=== PATIENT | male | born 1980 | race Caucasian/White ===

== ENCOUNTER 2025-03-08 05:36 | Inpatient (IN) | payer MEDICAID, SELFPAY ==
[2025-03-08] VITALS (62 sets, daily range): BP systolic 143–240; BP diastolic 82–138; PULSE 75–117; RESP 11–30; TEMP 36.2–36.6; O2SAT 88–100
--- NOTE | 2025-03-08 05:30 | RT.EKG_ITS ---
APPROVED REPORT Exam: Resting ECG Reason for Exam: SOB Patient Location: E HR:110 bpm ECG Measurements Heart Rate 110 AXIS MI 170 P 95 QRSd 98 QRS 35 QT 349 T 121 QTc 471 Conclusion Sinus tachycardia...rate> 99 Nonspecific T abnormalities, lateral leads...T <-0.10mV, I aVL V5 V6
[2025-03-08] MEDS: Albuterol/Ipratropium 3 ML UPD VIAL ×2 (05:59→07:04)
--- NOTE | 2025-03-08 06:16 | ED.GENADUL_ITS ---
Discharge Plan Discharge Details Chief Complaint: SOB/SuddenOnset Primary Care Provider: Unknown,Unknown ED Provider: Reynaldo Gomez Home Meds and New Rx's Prescriptions: No Action No Known Home Meds HPI General Date/Time Provider Initiated Documentation: 03/08/25 06:03 . HPI Narrative: This is a 44-year-old male who has no past medical history however he states that he has not gone to a doctor since I was 15 years old who presents today for shortness of breath. Patient states that he was asleep when he woke up feeling like he was choking. [place] extremely short of breath and came to the ER for further assessment. He has been smoking for decades. He states that over the last few nights he has had a few episodes like this, but this is the worst. He denies vomiting or diarrhea. He admits to mild right sided chest wall achiness. He denies fever or chills. No productivity with cough. No other complaints at this time. He states that he feels like his chest is extremely tight whenever he tries to take a breath, which she states feels very similar to when he used to have asthma as a child, but has not had any asthma problem or diagnosis for years otherwise. Related Data Home Medications ?Medication ?Instructions ?Recorded ?Confirmed Unknown [No Known Home Meds] 03/08/25 03/08/25 Allergies Allergy/AdvReac Type Severity Reaction Status Date / Time Unable to Assess Allergy Verified 03/08/25 05:53 General Stated Complaint: SOB/SuddenOnset NAE: 3 Exam Narrative Exam Narrative: 1.Const: Well-nourished, Well-developed, appearing stated age 2.Eyes: PERRL, no conjunctival injection, and symmetrical lids. 3.ENT: Atraumatic external nose and ears. Moist MM. Neck: Symmetric, trachea midline, No thyromegaly. 4.CVS: +S1/S2, Peripheral pulses 2+ and equal in all extremities. Brisk capillary refill in all extremities. 5.RESP: Diffuse wheezes throughout, reduced breath sounds throughout. No rhonchi or rales. 6.GI: Soft, Nontender/Nondistended, No hepatosplenomegaly. No guarding or rebound. 7.MSK: Normocephalic/Atraumatic, Extremities w/o deformity or ttp No cyanosis or clubbing, Normal movement of all extremities. Trace pitting edema. 8.Skin: Warm, Dry. No rashes or lesions. 9.Neuro: erp consultant II-XII grossly intact. Sensation grossly intact, no focal neurologic deficits. 10.Psych: (AAO) x3. Appropriate mood and affect Course Vital Signs Vital signs: Vital Signs Temperature 36.4 C L 03/08/25 05:41 Pulse 117 H 03/08/25 05:41 Respiratory Rate 28 H 03/08/25 05:41 Blood Pressure 240/124 H 03/08/25 05:41 Pulse Oximetry 94 03/08/25 05:41 Temperature 36.4 C L 03/08/25 05:41 Temperature Source Tympanic 03/08/25 05:41 Pulse 117 H 03/08/25 05:41 Respiratory Rate 28 H 03/08/25 05:45 Respiratory Effort Short of Breath, Accessory Muscle Use, Incrsd Work of Breathing 03/08/25 05:45 Respiratory Depth Shallow 03/08/25 05:45 Respiratory Pattern Tachypnea 03/08/25 05:45 Blood Pressure 240/124 H 03/08/25 05:41 Blood Pressure Position Sitting 03/08/25 05:41 Pulse Oximetry 94 03/08/25 05:41 Oxygen Delivery Method Room Air 03/08/25 05:41 Oxygen Flow Rate 0 03/08/25 05:41 Pain Level 0 03/08/25 05:41 Medical Decision Making This is a 44-year-old male who has no past medical history however he states that he has not gone to a doctor since I was 15 years old who presents today for shortness of breath. Patient states that he was asleep when he woke up fe eling like he was choking. [place] extremely short of breath and came to the ER for further assessment. He has been smoking for decades. He states that over the last few nights he has had a few episodes like this, but this is the worst. He denies vomiting or diarrhea. He admits to mild right sided chest wall achiness. He denies fever or chills. No productivity with cough. No other complaints at this time. He states that he feels like his chest is extremely tight whenever he tries to take a breath, which she states feels very similar to when he used to have asthma as a child, but has not had any asthma problem or diagnosis for years otherwise. Exam demonstrates diffuse wheezes, no rhonchi or rales. Oxygenation is 94%. Concern for asthma exacerbation, less likely pneumonia. Symptoms inconsistent with PE. Will give breathing treatment, steroids, gently rehydrate get a chest x-ray, monitor closely and reassess. 7:22 AM After additional breathing treatments patient is feeling a bit better. Achiness in his chest is notably improved. However the achiness seems to only be present when he coughs now. Laboratory workup is relatively benign aside for evidence of an elevated troponin at 303. Patient does admit to a family history of cardiac disease for his mother. He does not know the rest of his family. Concern for demand ischemia being the cause of his symptoms in conjunction with COPD exacerbation. However we will need to trend troponins and plan for admission. Once second troponin returns we will reach out to [facility] for discussion of potential need for transfer. Patient will be signed out to my colleague Dr. Sy for follow-up on imaging and labs. Quality:[facility] Health Related Social Needs: No Data to Display [facility] Social History Smoking/Tobacco Use Status: Current every day Tobacco Type: cigarettes Smoking risk assessment performed?: Yes Alcohol Intake: never Drug use: Never Substance use type: does not use Housing: apartment Do you feel safe at home: Yes Do you feel safe in your relationship?: Yes
--- NOTE | 2025-03-08 06:18 | DI.RAD_ITS ---
Exam(s) XR PORTABLE CHEST AP EXAM: XR PORTABLE CHEST AP CLINICAL HISTORY: sob TECHNIQUE: 2D digital imaging was performed of the chest. Two images were obtained. AP views were obtained. COMPARISON: No exams were available for comparison FINDINGS: MEDIASTINUM: Normal. HEART: Cardiomegaly. PULMONARY VASCULATURE: There is mild prominence of the pulmonary vasculature and increased interstiti al markings in the lungs. LUNGS: No focal consolidating infiltrates are seen. PLEURAL SPACE: No pleural effusion or pneumothorax. BONE:Within normal limits for the patient's age. OTHER FINDINGS:Normal. IMPRESSION: 1. Cardiomegaly. 2. Pulmonary venous congestion and probable mild interstitial edema. The findings are suggestive of fluid overload/heart failure. Please correlate with the patient's clinical history. A dedicated PA and lateral view of the chest should be considered for further characterization. 3. Focal consolidating infiltrates are seen. 4. The preliminary [facility] report was reviewed. DATA REPOSITORY: RADIATION DOSE DELIVERED:
[2025-03-08] MEDS: methylPREDNISolone SUCC 40 MG VIAL (06:20)
[2025-03-08 06:45] LABS: Abs Immature Grans 0.05 10^3/uL (0.0-0.06); Absolute Basophil Count 0.08 10^3/uL (0.0-0.2); Absolute Eosinophil Count 0.18 10^3/uL (0.0-0.7); Absolute Lymphocyte Count 1.61 10^3/uL (1.2-3.4); Absolute Monocyte Count 0.79 10^3/uL (0.1-0.8); Absolute Neutrophil Count 6.38 10^3/uL (1.2-6.7); Basophils % 0.9 %; HCT 46.5 % (40.0-50.0); HGB 15.8 g/dL (13.5-17.5); Immature Grans % 0.6 %; Lymphocytes % 17.7 %; MCV 94 fL (80-95); MPV 9.3 fL (8.0-11.0); Monocytes % 8.7 %; Neutrophils % 70.1 %; Platelet Count 247 10^3/uL (130-400); RBC 4.94 10^6/uL (4.36-5.78); RDW 13.3 % (11.8-14.1); RDW-SD 45.9 fL; WBC 9.09 10^3/uL (4.4-10.8)
[2025-03-08 06:49] LABS: ALT 34 U/L (16-63); AST 29 U/L (15-37); Albumin 3.7 g/dL (3.4-5.0); Alkaline Phosphatase 134 U/L (46-116); Anion Gap 7.1 mmol/L (3-11); BUN 18 mg/dL (7-18); Bilirubin, Total 0.6 mg/dL (0.2-1.0); CO2 28.9 mmol/L (21.0-32.0); CREATININE 1.5 mg/dL (0.70-1.30); Calcium 9.3 mg/dL (8.5-10.1); Chloride 104 mmol/L (98-107); Estimated GFR 57.79 (mL/min/1.73m2); Glucose 98 mg/dL (74-106); Potassium 3.8 mmol/L (3.5-5.1); Sodium 140 mmol/L (136-145); Total Protein 7.7 g/dL (6.4-8.2)
[2025-03-08 06:52] LABS: Troponin I 303 ng/L (<or=76)
[2025-03-08 06:56] LABS: PTT Activated 25.4 sec (20.6-30.2); Prothrombin Time 10.4 sec (9.1-11.1)
[2025-03-08] MEDS: Aspirin 81 MG CHEW 324 MG CH (07:02)
[2025-03-08] MEDS: nitroGLYcerin 0.4 MG TAB (07:18)
[2025-03-08 07:23] LABS: Troponin I 297 ng/L (<or=76)
--- NOTE | 2025-03-08 07:25 | DI.[facility]_ITS ---
PROCEDURE INFORMATION: Exam: XR Chest Exam date and time: 03/08/2025 6:16 AM Age: 44 years old Clinical indication: Shortness of breath; SOB TECHNIQUE: Imaging protocol: Radiologic exam of the chest. Views: 1 view. COMPARISON: No relevant prior studies available. FINDINGS: Lungs: Pulmonary vascular congestion. Pleural spaces: No large pleural effusion seen. Heart/Mediastinum: Enlarged cardiac silhouette. Bones/joints: No acute abnormality. IMPRESSION: Enlarged cardiac silhouette with pulmonary vascular congestion. Correlate clinically for heart failure. Dictated and Authenticated by: Christi Lopez MD. Orderin Jason Jacobs MD
[2025-03-08] MEDS: Furosemide 20 MG/2 ML VIAL IVP (07:30)
[2025-03-08 07:49] LABS: NT-proBNP 1762 pg/mL (<300)
--- NOTE | 2025-03-08 08:13 | ED.PROG_ITS ---
Date of service: 03/08/25 Time of Service: 08:13 Medical Decision Making I received signout on this 44-year-old male with history of elevated BMI and family history of positive for coronary artery disease with shortness of breath cough. Patient is an active smoker. He arrives markedly hypertensive. His chest pain was not responsive to nitro. He received aspirin. His labs are significant for myocardial injury as he had a critically elevated troponin. He is pending consultation with [facility]. He received 20 mg IV furosemide. 8:35 AM I was in touch with Marbin Man nurse practitioner from the cardiology service at [facility]. On behalf of Dr. Gannon she accepted the patient for transfer tomorrow on 03/09/2025. She advised heparinization but deferred clopidogrel. She advised every 6 hour troponins. She advised the patient may require repeat 20 mg dose of furosemide today with possible 40 mg dose of furosemide on 03/09. Will reach out to the hospitalist service. Will complete amama-ys-nvdc echo. 8:56 AM Bedside ultrasound with normal EF. No obvious B-lines. Patient requested that I call his mother. I called patient's mother's listed in his chart. Unfortunately this number was disconnected. Patient also gave me number of [phone]. This number also did not work. 10:57 AM Patient reportedly had ECG changes on monitor. Repeat ECG was obtained which showed slightly more pronounced T wave inversion in aVL. No signs of occlusion KS. I was in touch with Dr. Sanches who graciously agreed to accept the patient for hospitalization. Patient was not having chest pain during these episodes. Quality:[facility] Health Related Social Needs: No Data to Display Discharge Plan Disposition Patient Disposition: Admit to [facility] Discharge Details Chief Complaint: SOB/SuddenOnset Clinical Impression: Myocardial injury, (HFpEF) heart failure with preserved ejection fraction Primary Care Provider: Unknown,Unknown ED Provider: Tobias Sy Home Meds and New Rx's Prescriptions: No Action No Known Home Meds POCUS Exam (ED) Limited Cardiac Exam DATE OF EXAM: 03/08/25 TIME OF EXAM: 09:01 PROVIDER THAT PERFORMED THE STUDY: Tobias Sy IS THIS A REPEAT EXAM DURING THIS ENCOUNTER: no REASON FOR EXAM: Chest pain VISUALIZED STRUCTURES: Four Chambers, Left ventricle and LVOT VIEW OBTAINED: Apical 4-Chamber, Parasternal long-axis and Subxiphoid PERTINENT FINDINGS/IMPRESSION: No pericardial effusion and No RV dilation DIFFERENTIAL DIAGNOSES: Aortic outflow track less than 4 cm, good squeeze, no significant pericardial effusion. No significant B-lines bilaterally. Difficult apical four-chamber view. Exam complete
[2025-03-08] MEDS: Heparin in 0.45% NaCl 25,000 UNIT/250 ML BAG 10 UNIT IVINF (08:57)
[2025-03-08 09:27] LABS: Troponin I 280 ng/L (<or=76)
--- NOTE | 2025-03-08 10:15 | RT.EKG_ITS ---
APPROVED REPORT Exam: Resting ECG Reason for Exam: Rykalynm Change Patient Location: E HR:90 bpm ECG Measurements Heart Rate 90 AXIS DE 191 P 72 QRSd 95 QRS -3 QT 374 T 136 QTc 459 Conclusion Sinus rhythm...normal P axis, V-rate 60- 99 Probable left atrial enlargement...P >50mS, <-0.10mV V1 Abnormal T, consider ischemia, lateral leads...T <-0.20mV, I aVL V5 V6 No Occlusion DC
--- NOTE | 2025-03-08 11:02 | HPE_ITS ---
Date of service: 03/08/25 Time of Service: 11:02 Assessment and Plan Assessment and plan (1) (HFpEF) heart failure with preserved ejection fraction: Status: Acute Assessment and plan: Would recommend formal echo. BNP is elevated and s/s consistent with chf. Will need GDMR. Pt has had good UOP. (2) Myocardial injury: Status: Acute Assessment and plan: Pt has been accepted in transfer to [facility] for cardiac work up. (3) Tobacco abuse: Status: Acute Assessment and plan: Recommend complete cessation. Will not start nicotine replacement as this can cause vasoconstriction. (4) COPD (chronic obstructive pulmonary disease): Status: Chronic Assessment and plan: Not a formal diagnosis. Will need a formal PFT for diagnosis. Will consider adding steroids History of Present Illness History of Present Illness Chief Complaint: SOB Narrative: 44-year-old gentleman who presents to the ED with shortness of breath has been progressively worse over the last few days. While in the ED the patient did get workup which included cardiac enzymes which were elevated. According to the note from the ED, the case was presented to the cardiology service and [facility] who accepted him in transfer for workup of acute coronary syndrome. Unfortunately, at this point they do not have any beds so he will be boarded with us. Upon my discussion with the patient he endorses signs and symptoms consistent with CHF. The patient has not seen a physician since he is 15. The patient does endorse a history of tobacco use smoking 1-1 and half packs of cigarettes a day. Patient's lab work including a CBC CMP INR and troponin have been reviewed. Patient has mild elevation in his creatinine at 1.5. BNP is 1762 and troponin with 3 values are 303, 297 and 280. Chest x-ray shows cardiomegaly as well as interstitial edema consistent with CHF. EKG was read as possible left atrial enlargement and inverted T wave in the inferior leads. Review of Systems All systems reviewed & are unremarkable except as noted in HPI and below PFSH All Active Problems (Updated 03/08/25 @ 11:10 by Jimbo Sanches MD) COPD (chronic obstructive pulmonary disease) (Chronic) Tobacco abuse (Acute) (HFpEF) heart failure with preserved ejection fraction (Acute) Myocardial injury (Acute) Social History Smoking/Tobacco Use Status: Current every day Tobacco Type: cigarettes Smoking risk assessment performed?: Yes Alcohol Intake: never Drug use: Never Substance use type: does not use Housing: apartment Do you feel safe at home: Yes Do you feel safe in your relationship?: Yes Meds Allergies and Home Medications Allergies Allergy/AdvReac Type Severity Reaction Status Date / Time Unable to Assess Allergy Verified 03/08/25 05:53 Home Medications ?Medication ?Instructions ?Recorded ?Confirmed ?Type Unknown [No Known Home Meds] 03/08/25 03/08/25 History Exam Narrative Exam Narrative: HEENT-NCAT MMM EOMI PERRLA NECK-NO LAD NO JVD CV-RRR NO MRG PULM-BILAT WHEEZE NO AMU ABD-PROTUBERENT EXT-2PLUS DAISHA BILAT PSYCH-AAOX3 NEURO-CN 2-12 INTACT TESTED, REFLEXES IN UE/LE TESTED Results Labs 03/08/25 06:35 03/08/25 05:53 Labs: Laboratory Results - last 24 hr 03/08/25 03/08/25 03/08/25 05:53 06:35 06:58 WBC Cancelled 9.09 RBC Cancelled 4.94 Hgb Cancelled 15.8 Hct Cancelled 46.5 MCV Cancelled 94 MCH Cancelled 32.0 MCHC Cancelled 34.0 RDW Cancelled 13.3 Plt Count Cancelled 247 MPV Cancelled 9.3 Immature Gran % Cancelled 0.6 Neutrophils % Cancelled 70.1 Band Neutrophils % Cancelled Lymphocytes % Cancelled 17.7 Atypical Lymphs % Cancelled Monocytes % Cancelled 8.7 Eosinophils % Cancelled 2.0 Basophils % Cancelled 0.9 Metamyelocytes % Cancelled Myelocytes % Cancelled Promyelocytes % Cancelled Other Cells % Cancelled Nucleated RBC % Cancelled 0.0 Absolute Neutrophils Cancelled 6.38 Absolute Lymphocytes Cancelled 1.61 Absolute Monocytes Cancelled 0.79 Absolute Eosinophils Cancelled 0.18 Absolute Basophils Cancelled 0.08 RBC Morphology Cancelled Polychromasia Cancelled Hypochromasia Cancelled Poikilocytosis Cancelled Basophilic Stippling Cancelled Anisocytosis Cancelled Microcytosis Cancelled Macrocytosis Cancelled Spherocytes Cancelled Tear Drop Cells Cancelled Ovalocytes Cancelled Stomatocytes Cancelled [place] Bodies Cancelled [place] Cells/Echinocytes Cancelled Acanthocytes (Spur) Cancelled Schistocytes Cancelled PT 10.4 INR 1.0 APTT 25.4 Sodium 140 Potassium 3.8 Chloride 104 Carbon Dioxide 28.9 Anion Gap 7.1 BUN 18 Creatinine 1.5 H Est GFR (CKD-EPI 2020) 57.79 Glucose 98 Calcium 9.3 Total Bilirubin 0.6 AST 29 ALT 34 Alkaline Phosphatase 134 H Troponin I 303 H* 297 H* NT-Pro-B Natriuret Pep 1762 H Total Protein 7.7 Albumin 3.7 03/08/25 08:52 WBC RBC Hgb Hct MCV MCH MCHC RDW Plt Count MPV Immature Gran % Neutrophils % Band Neutrophils % Lymphocytes % Atypical Lymphs % Monocytes % Eosinophils % Basophils % Metamyelocytes % Myelocytes % Promyelocytes % Other Cells % Nucleated RBC % Absolute Neutrophils Absolute Lymphocytes Absolute Monocytes Absolute Eosinophils Absolute Basophils RBC Morphology Polychromasia Hypochromasia Poikilocytosis Basophilic Stippling Anisocytosis Microcytosis Macrocytosis Spherocytes Tear Drop Cells Ovalocytes Stomatocytes [place] Bodies [place] Cells/Echinocytes Acanthocytes (Spur) Schistocytes PT INR APTT Sodium Potassium Chloride Carbon Dioxide Anion Gap BUN Creatinine Est GFR (CKD-EPI 2020) Glucose Calcium Total Bilirubin AST ALT Alkaline Phosphatase Troponin I 280 H* NT-Pro-B Natriuret Pep Total Protein Albumin Last Vital Signs Temp 36.4 C L 03/08/25 05:41 Pulse 96 H 03/08/25 09:40 Resp 18 03/08/25 09:40 BP 181/110 H 03/08/25 09:31 Pulse Ox 92 03/08/25 09:40 Time Spent Time spent with Patient: <40 minutes Time was spent: preparing to see the patient(eg.review tests), obtaining and/or reviewing separately otained hiistory, ordering medications,tests, procedures, referring, communicating with other health acute care certified nursing assistant, indepentently interpreting results, counseling the patient and care coordination
--- NOTE | 2025-03-08 11:33 | W.PC.ACHO ---
Registration Status: Primary Language: Preferred Language: ED Information & Data Chief Complaint SOB/SuddenOnset 03/08/25 06:20 Triage Note pt arrives via POV from home 03/08/25 05:41 , was asleep and woke up felt like he was choking/ coughing, now feels very SOB . Pt smokes 1.5 packs a day. Increased work of breathing on arrival. denies recent illness Most Recent Vital Signs Temperature 36.4 C L 03/08/25 05:41 Temperature Source Tympanic 03/08/25 05:41 Pulse 87 03/08/25 11:20 Pulse 87 03/08/25 11:20 Respiratory Rate 17 03/08/25 11:20 Respiratory Effort Short of Breath, Accessory Muscle Use, Incrsd Work of Breathing 03/08/25 05:45 Respiratory Depth Shallow 03/08/25 05:45 Respiratory Pattern Tachypnea 03/08/25 05:45 Blood Pressure 171/95 H 03/08/25 11:16 Blood Pressure Mean 115 03/08/25 11:16 Blood Pressure Position Sitting 03/08/25 05:41 Pulse Oximetry 94 03/08/25 11:20 Oxygen Delivery Method Room Air 03/08/25 05:41 Oxygen Flow Rate 0 03/08/25 05:41 Pain Level 1 03/08/25 07:30 Allergies Unable to Assess Allergy (Verified 03/08/25 05:53) Precautions Isolation Standard precaution 03/08/25 05:45 Active Medications Generic Name Dose Route Start Last Admin Trade Name Freq PRN Reason Stop Dose Admin Heparin Sodium/Sodium Chloride 25,000 unit in 250 mls @ 10 mls/hr 03/08/25 08:45 03/08/25 08:57 IVINF 1,000 units/hr INFUSION OKSANA 10 mls/hr Administration Protocol 1,000 UNITS/HR IV IV Catheter Type [Right Peripheral IV Antecubital] IV Catheter Gauge [Right 18 Antecubital] Diet Orders Category Date Time Status Regular/Normal [DIET] Nutrition 03/08/25 Lunch Active Diagnostics 03/08/25 03/08/25 03/08/25 Range/Units 08:52 06:58 06:35 WBC 9.09 RBC 4.94 Hgb 15.8 Hct 46.5 MCV 94 MCH 32.0 MCHC 34.0 RDW 13.3 Plt Count 247 MPV 9.3 Immature Gran % 0.6 Neutrophils % 70.1 Band Neutrophils % Lymphocytes % 17.7 Atypical Lymphs % Monocytes % 8.7 Eosinophils % 2.0 Basophils % 0.9 Metamyelocytes % Myelocytes % Promyelocytes % Other Cells % Nucleated RBC % 0.0 Absolute Neutrophils 6.38 Absolute Lymphocytes 1.61 Absolute Monocytes 0.79 Absolute Eosinophils 0.18 Absolute Basophils 0.08 RBC Morphology Polychromasia Hypochromasia Poikilocytosis Basophilic Stippling Anisocytosis Microcytosis Macrocytosis Spherocytes Tear Drop Cells Ovalocytes Stomatocytes Lane[place] Bodies [place] Cells/Echinocytes Acanthocytes (Spur) Schistocytes PT (9.1-11.1) sec INR (0.9-1.1) APTT (20.6-30.2) sec Sodium (136-145) mmol/L Potassium (3.5-5.1) mmol/L Chloride (98-107) mmol/L Carbon Dioxide (21.0-32.0) mmol/L Anion Gap (3-11) mmol/L BUN (7-18) mg/dL Creatinine (0.70-1.30) mg/dL Est GFR (CKD-EPI 2020) (mL/min/1.73m2) Glucose (74-106) mg/dL Calcium (8.5-10.1) mg/dL Total Bilirubin (0.2-1.0) mg/dL AST (15-37) U/L ALT (16-63) U/L Alkaline Phosphatase (46-116) U/L Troponin I 280 H* 297 H* (<or=76) ng/L NT-Pro-B Natriuret Pep (<300) pg/mL Total Protein (6.4-8.2) g/dL Albumin (3.4-5.0) g/dL 03/08/25 Range/Units 05:53 WBC Cancelled RBC Cancelled Hgb Cancelled Hct Cancelled MCV Cancelled MCH Cancelled MCHC Cancelled RDW Cancelled Plt Count Cancelled MPV Cancelled Immature Gran % Cancelled Neutrophils % Cancelled Band Neutrophils % Cancelled Lymphocytes % Cancelled Atypical Lymphs % Cancelled Monocytes % Cancelled Eosinophils % Cancelled Basophils % Cancelled Metamyelocytes % Cancelled Myelocytes % Cancelled Promyelocytes % Cancelled Other Cells % Cancelled Nucleated RBC % Cancelled Absolute Neutrophils Cancelled Absolute Lymphocytes Cancelled Absolute Monocytes Cancelled Absolute Eosinophils Cancelled Absolute Basophils Cancelled RBC Morphology Cancelled Polychromasia Cancelled Hypochromasia Cancelled Poikilocytosis Cancelled Basophilic Stippling Cancelled Anisocytosis Cancelled Microcytosis Cancelled Macrocytosis Cancelled Spherocytes Cancelled Tear Drop Cells Cancelled Ovalocytes Cancelled Stomatocytes Cancelled Lane[place] Bodies Cancelled Frida Cells/Echinocytes Cancelled Acanthocytes (Spur) Cancelled Schistocytes Cancelled PT 10.4 (9.1-11.1) sec INR 1.0 (0.9-1.1) APTT 25.4 (20.6-30.2) sec Sodium 140 (136-145) mmol/L Potassium 3.8 (3.5-5.1) mmol/L Chloride 104 (98-107) mmol/L Carbon Dioxide 28.9 (21.0-32.0) mmol/L Anion Gap 7.1 (3-11) mmol/L BUN 18 (7-18) mg/dL Creatinine 1.5 H (0.70-1.30) mg/dL Est GFR (CKD-EPI 2020) 57.79 (mL/min/1.73m2) Glucose 98 (74-106) mg/dL Calcium 9.3 (8.5-10.1) mg/dL Total Bilirubin 0.6 (0.2-1.0) mg/dL AST 29 (15-37) U/L ALT 34 (16-63) U/L Alkaline Phosphatase 134 H (46-116) U/L Troponin I 303 H* (<or=76) ng/L NT-Pro-B Natriuret Pep 1762 H (<300) pg/mL Total Protein 7.7 (6.4-8.2) g/dL Albumin 3.7 (3.4-5.0) g/dL Intake and Output - 24 Hour Total 03/08/25 05:36 thru 03/08/25 09:11 Output Total 950 Balance -950 Weight 138 kg Output: Urine 950 Falls Risk Assessment History of Falls No History 03/08/25 05:45 Contributing Factors No Factors 03/08/25 05:45 Ambulatory Aids Independent 03/08/25 05:45 Tubes/Lines None 03/08/25 05:45 Gait Evaluation No gait disturbance 03/08/25 05:45 Cognition No cognitive impairment 03/08/25 05:45 Fall Total Score 0 03/08/25 05:45 Level of Risk Standard/Low Risk 03/08/25 05:45 Problems COPD (chronic obstructive pulmonary disease) (Chronic) Tobacco abuse (Acute) (HFpEF) heart failure with preserved ejection fraction (Acute) Myocardial injury (Acute) v v v v v v v v v Sending and/or Receiving Nurses: Please use comment section below to note any information pertinent to the patient hand-off not included above. Information / Comments: PT arrives to Rm 231 on heparin drip from ED. Report received from: Belkys Lr RN
--- NOTE | 2025-03-08 14:22 | NUR.NOTE ---
Nursing Note: Pt's mother is asking to spend the night d/t the pt i s her caregiver. She does not feel safe at home without him and wishes to stay here with him so that he can assist her. Discussed with her that pt will not be able to assist her while he is getting care here, he is just not well enough. She acknowledged this and asked if the nurses could her with her cares tonvirgen. Advised that is not allowed and that other friends or family will need to take over her care as she is not legally a pt here. She stated she understood, then stated that she would be here until 8pm linnette.
--- NOTE | 2025-03-08 14:38 | INITIAL_ITS ---
Date of service: 03/08/25 Time of Service: 15:34 Care Management Initial Assmt Initial Assessment Reason for Hospitalization: HFpEF Functional Status/Living Situation Patient Presentation: Emiliano was sitting on the edge of his bed, with his mother in the room, when CM arrived. He presented to the ED with shortness of breath. Emiliano is living in [facility] with his mom - Lily, who he is a paid caregiver for. The family has requested to have Lily stay at [facility], in the hospital with Emiliano but was informed by CM, and the charge out clerk that this is not possible (warehouse operations manager notified); The family has been notified that other arrangements will need to be made for Lily. Per report, Emiliano has not been to a doctor since he was 15. Per Emiliano, he does not have a PCP or insurance. DESTINY will send a referral to [facility] with patient permission and provided him with the '[facility] Financial Assistance Packet'. At the patients request, CM communicated information regarding insurance, and PCP's to Ann. DESTINY reinforced that [facility] cannot provide any care at this time to Lily, as she is not a current patient; requested that Ann comes to get her, she was agreeable. Emiliano was accepted at [facility] [place] but is awaiting a bed there. 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 States $605 bi-weekly from [facility] for this. Natural Supports: Ly p: , Lily Employment Status: Employed Instrumental Activities of Daily Living (ADLs): Independent Medications Medication Management: No Issues/Barriers identified Advance Directives Advance Directives: Do you have an Advance Directive: N 03/08/25 05:36 AD On File at [facility]: N 03/08/25 05:36 Date Asked 03/08/25 03/08/25 07:31 AD Date Reviewed COLST On File at [facility] COLST Date Scanned Code Status Resuscitation Status Full Code Portal Pt does not currently have a portal and education provided: No Insurance Coverage/Financial Issues Insurance: None at this time Care Team Visit Care Team Role Provider Type Unknown Unknown Primary Care Provider STAFF PHYSICIAN Livia Hector Other Providers CERTIFIED FINANCIAL PLANNER Lily Naranjo Other Providers CERTIFIED FINANCIAL PLANNER Claudia Churchill Other Providers CERTIFIED FINANCIAL PLANNER Roselia Cooper RN Other Providers CERTIFIED FINANCIAL PLANNER Alia Sanches Other Providers CERTIFIED FINANCIAL PLANNER Tobias Sy MD Emergency Provider [facility] STAFF PHYSICIAN Jimbo Sanches MD Admit Provider [facility] STAFF PHYSICIAN Attending Provider Discharge Potential Discharge Needs: PCP F/U Appt Anticipated Barriers to Discharge: Bed availability ([facility] [place] ) Patient/Family Education Needs: Review discharge instructions, discuss Ask Me Three Transportation: EMS Plan: Emiliano has been accepted to [facility] [place] [place] for futher assessment and possible treatment for potential heart failure. He is currently awaiting a bed, and will be transported via EMS. Social Determinants of Health Screening Social Determinants of health last assessed in clinic: 03/08/25 Will the Patient Participate in the Screening?: Yes Do you worry about having a steady place to live?: no Problems where you live: mold and water leaks In the past 12 months, have you had to go without electric, gas, oil or water in your home?: no 1. Within the past 12 months, we worried whether our food would run out before we got money to buy more.: Don't know/refused 2. Within the past 12 months, the food we bought just didn't last and we didn't have money to get more.: Don't know/refused Has lack of transportation kept you from medical appointments or from doing things needed for daily living?: no Has anyone in your life made you feel unsafe or unsupported?: no How hard is it for you to pay for the very basics like food, housing, medical care, and heating? Would you say it is:: Not hard at all Do you want help finding or keeping work or a job?: I do not need or want help If for any reason you need help with day-to-day activities such as bathing, preparing meals, shopping, managing finances, etc., do you get the help you need?: I don?t need any help How often do you feel lonely or isolated from those around you?: Sometimes Do you speak a language other than Indonesian at home?: No Does the patient want assistance with any of the above?: No Health Related Social Needs Health related social needs: inadequate housing (Z59.1) and feeling lonely/isolated (Z60.8) Health related social needs details: na PFSH All Active Problems (Updated 03/08/25 @ 11:10 by Jimbo Sanches MD) COPD (chronic obstructive pulmonary disease) (Chronic) Tobacco abuse (Acute) (HFpEF) heart failure with preserved ejection fraction (Acute) Myocardial injury (Acute) Social History Smoking/Tobacco Use Status: Current every day Tobacco Type: cigarettes Smoking risk assessment performed?: Yes Alcohol Intake: never Drug use: Never Substance use type: does not use Housing: apartment Do you feel safe at home: Yes Do you feel safe in your relationship?: Yes Readmission Within the Past 30 Days Yes or No: No
[2025-03-08 15:45] LABS: PTT Activated 28.5 sec (20.6-30.2)
[2025-03-08] MEDS: Metoprolol 25 MG TAB 12.5 MG PO (20:24)
[2025-03-08] MEDS: Atorvastatin 40 MG TAB 80 MG PO (20:25)
[2025-03-08] MEDS: methylPREDNISolone SUCC 40 MG VIAL IVP (20:26)
[2025-03-08] MEDS: Normal Saline Flush 10 ML SYR IVP (20:27)
[2025-03-08 21:05] LABS: Troponin I 114 ng/L (<or=76)
[2025-03-08] MEDS: Heparin in 0.45% NaCl 25,000 UNIT/250 ML BAG 14.5 UNIT IVINF (22:00)
[2025-03-08 22:49] LABS: PTT Activated 34.3 sec (20.6-30.2)
--- NOTE | 2025-03-08 23:00 | RT.EKG_ITS ---
APPROVED REPORT Exam: Resting ECG Reason for Exam: chest pressure Patient Location: I HR:88 bpm ECG Measurements Heart Rate 88 AXIS AR 191 P 66 QRSd 96 QRS 6 QT 377 T 148 QTc 457 Conclusion Sinus rhythm...normal P axis, V-rate 50- 99 Probable left atrial enlargement...P >50mS, <-0.10mV V1 Abnormal T, consider ischemia, lateral leads...T <-0.20mV, I aVL V5 V6
[2025-03-08] MEDS: nitroGLYcerin 0.4 MG TAB SL ×2 (23:07→23:15)
[2025-03-08] MEDS: Acetaminophen 325 MG TAB PO (23:18)
--- NOTE | 2025-03-08 23:28 | NUR.NOTE ---
Nursing Note: Result of APTT was 34.3 , Heparin bolus of 5,000 units administered and rate increased to 450 according to heparin protocol, total rate infusing is 19, was co signed by driver license agent. Patient complained of chest tightness and headache. Nitro given at 23:05 hrs. w/ B/P of 144/96, SC 87. MD notified and ordered another NTG one sublingual given, B/P rechecked was 132/87, SC 88 and no chest tightness at this time but headache is accelerating , tylenol given at 23:30 hrs. , EkG completed by RT and MD was notified by RN I/C. Latest B/P 142/84, HR 86 and patient verbalized of feeling better.. Call lights at reach.
[2025-03-09] MEDS: Metoprolol 25 MG TAB 12.5 MG PO ×2 (01:31→08:01)
[2025-03-09 01:34] LABS: Troponin I 112 ng/L (<or=76)
[2025-03-09 03:19] VITALS: BP 123/72; PULSE 79; RESP 20; TEMP 36.6; O2SAT 91
[2025-03-09] MEDS: methylPREDNISolone SUCC 40 MG VIAL IVP (03:48)
[2025-03-09 05:53] LABS: Abs Immature Grans 0.08 10^3/uL (0.0-0.06); Absolute Basophil Count 0.01 10^3/uL (0.0-0.2); Basophils % 0.1 %; HCT 47.9 % (40.0-50.0); HGB 15.9 g/dL (13.5-17.5); Immature Grans % 0.6 %; Lymphocytes % 6.8 %; MCH 31.6 pg (27.0-33.0); MCHC 33.2 % (32.0-36.0); MCV 95 fL (80-95); Neutrophils % 89.5 %; Platelet Count 277 10^3/uL (130-400); RBC 5.03 10^6/uL (4.36-5.78); RDW 13.5 % (11.8-14.1); RDW-SD 47.7 fL; WBC 14.51 10^3/uL (4.4-10.8)
[2025-03-09 05:55] LABS: Absolute Lymphocyte Count 0.99 10^3/uL (1.2-3.4); Absolute Monocyte Count 0.44 10^3/uL (0.1-0.8); Absolute Neutrophil Count 12.99 10^3/uL (1.2-6.7)
[2025-03-09 06:07] LABS: PTT Activated 59.8 sec (20.6-30.2)
[2025-03-09 06:10] LABS: ALT 29 U/L (16-63); AST 18 U/L (15-37); Albumin 3.4 g/dL (3.4-5.0); Alkaline Phosphatase 115 U/L (46-116); Anion Gap 8.6 mmol/L (3-11); BUN 21 mg/dL (7-18); Bilirubin, Total 0.5 mg/dL (0.2-1.0); CO2 26.4 mmol/L (21.0-32.0); CREATININE 1.3 mg/dL (0.70-1.30); Calcium 8.9 mg/dL (8.5-10.1); Chloride 102 mmol/L (98-107); Estimated GFR 68.61 (mL/min/1.73m2); Glucose 137 mg/dL (74-106); Potassium 4.3 mmol/L (3.5-5.1); Sodium 137 mmol/L (136-145); Total Protein 7.1 g/dL (6.4-8.2)
[2025-03-09 07:26] VITALS: BP 137/83; PULSE 88; RESP 18; TEMP 36.7; O2SAT 97
[2025-03-09] MEDS: Aspirin 81 MG CHEW PO (08:01)
[2025-03-09] MEDS: Normal Saline Flush 10 ML SYR IVP ×2 (08:01→08:02)
[2025-03-09 08:02] LABS: Troponin I 100 ng/L (<or=76)
[2025-03-09] MEDS: Heparin in 0.45% NaCl 25,000 UNIT/250 ML BAG 19 UNIT IVINF (10:00)
[2025-03-09 11:18] VITALS: BP 149/97; PULSE 89; RESP 18; TEMP 36.5; O2SAT 94
[2025-03-09 11:32] LABS: PTT Activated 48.4 sec (20.6-30.2)
--- NOTE | 2025-03-09 11:47 | W.PM.DS.N ---
Date of service: 03/09/25 Time of Service: 11:48 DS: Diagnosis Discharge Diagnosis (1) (HFpEF) heart failure with preserved ejection fraction: Status: Acute (2) Myocardial injury: Status: Acute (3) Tobacco abuse: Status: Acute (4) COPD (chronic obstructive pulmonary disease): Status: Chronic Discharge Plan Disposition Patient Disposition: Against Medical Advice Condition: Serious Discharge Details Reason For Visit: ACS Admit Date/Time: 03/08/25 10:56 Admit Provider: Jimbo Sanches Attending Provider: Jimbo Sanches Primary Care Provider: Unknown,Unknown Hospital Course Hospital Course: This is a 44-year-old gentleman who presented to the ED on the with worsening shortness of breath. While in the ED he was noted to have elevations in his troponins as well as inverted T waves in the lateral leads of his EKG. Upon my interpretation of his EKG he has T wave inversion in lead I as well as poor R wave progression in V1 and V2. Patient does not appear to have an acute MN at this time though. Patient's case was presented to cardiology at [facility] who accepted him for cardiac catheterization. Patient was started on heparin per guidelines from cardiology. Please review with Dr. Sy's ED note for details about the conversation with cardiology. On the the patient asked to be discharged home. I recommended unequivocally that the patient stay in the hospital and get a cardiac cath. The patient was unwilling to stay and chose to leave AGAINST MEDICAL ADVICE. I did discuss with the patient that potential consequences could be or permanent disability. The patient did not have any auditory visual hallucinations and appear to be able to make his own decisions. I will not send the patient home on medications as this could be viewed as tacit approval for his decision. I strongly recommended that the patient stay and have appropriate evaluation and possible interventions. Home Meds and New Rx's Prescriptions: No Action No Known Home Meds Discharge Instructions Referrals: Kavita Odonnell MD [ [facility] STAFF PHYSICIAN] - (follow up [facility]) Equipment/Supplies:: No Equipment Needed Diet:: Low Sodium Discharge Data Discharge Comment: Please provide pt with contact info for Dr Odonnell DS: Summary Time Spent with Patient providing and/or coordinating discharge services: Greater than 30 minutes Status at Discharge Functional status at discharge: independent ambulation Overall status at discharge: patient is not back to baseline Mental Status: mental status grossly normal Speech and Movement: speech and movement normal Mood: congruent mood Affect: normal affect Quality:SDOH Health Related Social Needs: Health related social needs inadequate housing (Z59.1), feeling lonely/isolated (Z60.8) Health related social needs details na Health related social needs details: na Exam Narrative Exam Narrative: No respiratory distress No AMU Speaking in complete sentences AAOx3 NAD No visual/auditory hallucinations. Appears competent to make his own choices and understands the potential consequences of his actions Psych Mental Status: mental status grossly normal Speech and Movement: speech and movement normal Mood: congruent mood Affect: normal affect DS: Data Vitals/I&O Vitals and I&O: Vital Signs Temperature 36.5 C 03/09/25 11:18 Temperature Source Temporal Artery Scan 03/09/25 11:18 Pulse 89 03/09/25 11:18 Pulse Rhythm Regular 03/08/25 12:16 Pulse 87 03/08/25 11:20 Respiratory Rate 18 03/09/25 11:18 Respiratory Effort Short of Breath 03/08/25 12:16 Respiratory Depth Normal 03/08/25 12:16 Respiratory Pattern Normal 03/08/25 12:16 Blood Pressure 149/97 H 03/09/25 11:18 Blood Pressure Mean 114 03/09/25 11:18 Blood Pressure Position Sitting 03/08/25 05:41 Pulse Oximetry 94 03/09/25 11:18 Oxygen Delivery Method Room Air 03/09/25 11:18 Oxygen Flow Rate 0 03/09/25 11:18 Pain Level 0 03/09/25 07:26 Intake & Output 03/08/25 03/08/25 03/09/25 11:59 23:59 11:59 Intake Total 218.383 / 218.383 690.132 / 690.132 Output Total 950 / 1550 600 / 1550 1600 / 1600 Balance -950 / -1331.617 -381.617 / -1331.617 -909.868 / -909.868 Weight 134 kg 134 kg 134.6 kg Intake: IV 218.383 / 218.383 390.132 / 390.132 Oral 300 / 300 Output: Urine 950 / 1550 600 / 1550 1600 / 1600 Other: Urine Color Light Irma Straw Urine Appearance Cloudy Clear Stool Size Small Stool Characteristics Formed Data Completed and Pending Labs on day of discharge: Labs from last 24 hours 03/09/25 13:30: Troponin I Pending 03/09/25 11:10: APTT 48.4 H 03/09/25 07:30: Troponin I 100 H* 03/09/25 05:04: WBC 14.51 H, RBC 5.03, Hgb 15.9, Hct 47.9, MCV 95, MCH 31.6, MCHC 33.2, RDW 13.5, Plt Count 277, MPV 10.0, Immature Gran % 0.6, Neutrophils % 89.5, Lymphocytes % 6.8, Monocytes % 3.0, Eosinophils % 0.0, Basophils % 0.1, Nucleated RBC % 0.0, Absolute Neutrophils 12.99 H, Absolute Lymphocytes 0.99 L, Absolute Monocytes 0.44, Absolute Eosinophils 0.00, Absolute Basophils 0.01, APTT 59.8 H, Sodium 137, Potassium 4.3, Chloride 102, Carbon Dioxide 26.4, Anion Gap 8.6, BUN 21 H, Creatinine 1.3, Est GFR (CKD-EPI 2020) 68.61, Glucose 137 H, Calcium 8.9, Total Bilirubin 0.5, AST 18, ALT 29, Alkaline Phosphatase 115, Total Protein 7.1, Albumin 3.4 03/09/25 01:05: Troponin I 112 H* 03/08/25 22:30: APTT 34.3 H 03/08/25 20:35: Troponin I 114 H* 03/08/25 15:15: APTT 28.5 PFSH All Active Problems (Updated 03/08/25 @ 11:10 by Jimbo Sanches MD) COPD (chronic obstructive pulmonary disease) (Chronic) Tobacco abuse (Acute) (HFpEF) heart failure with preserved ejection fraction (Acute) Myocardial injury (Acute) Social History Smoking/Tobacco Use Status: Current every day Tobacco Type: cigarettes Smoking risk assessment performed?: Yes Alcohol Intake: never Drug use: Never Substance use type: does not use Housing: apartment Do you feel safe at home: Yes Do you feel safe in your relationship?: Yes Time Spent with Patient Time Spent with Patient: <45 minutes Time was spent: preparing to see the patient(eg.review tests), obtaining and/or reviewing separately otained hiistory, ordering medications,tests, procedures, referring, communicating with other health pharmacy care coordinator, indepentently interpreting results, counseling the patient and care coordination
--- NOTE | 2025-03-09 11:48 | NUR.NOTE ---
Pt has decided that he does not want to go to [facility]. Pt signed AMA paperwork and is going to go home. Nursing educated pt that is chest pain or any symptoms return to come back to ER or call 911. IVs removed. Nursing Note:
== END 2025-03-09 12:19 | disposition left against medical advice (07) | DRG 291 ==
LOC: ER 11:36 → MS 11:52
PROVIDERS: Family Medicine; Student in an Organized Health Care Education/Training Program; Admitting Provider Hospitalist; Emergency Provider Emergency Medicine; Responsible Provider Hospitalist; Visit Provider Hospitalist
DX: I50.31 Acute diastolic (congestive) heart failure (principal); F17.210 Nicotine dependence, cigarettes, uncomplicated; I11.0 Hypertensive heart disease with heart failure; Z82.49 Family history of ischemic heart disease and other diseases of the circulatory system; R74.8 Abnormal levels of other serum enzymes; R94.31 Abnormal electrocardiogram [ECG] [EKG]; I5A Non-ischemic myocardial injury (non-traumatic); J44.9 Chronic obstructive pulmonary disease, unspecified
CPT/HCPCS: 00123; 36415; 80053; 93005; 93308; 94640; 96365; 96366; 96375; 99285; 71045; 83880; 84484; 85025; 85610; 85730; 93010; 99222; 99239; J1644; J1938; J2919; J7620

== ENCOUNTER 2025-09-08 17:16 | Inpatient (IN) | payer MEDICAID, SELFPAY ==
[2025-09-08] VITALS (49 sets, daily range): BP systolic 149–207; BP diastolic 85–133; PULSE 71–99; RESP 13–26; TEMP 36.3; O2SAT 93–100
--- NOTE | 2025-09-08 17:00 | RT.EKG_ITS ---
APPROVED REPORT Exam: Resting ECG Reason for Exam: CP / SOB Patient Location: E HR:96 bpm ECG Measurements Heart Rate 96 AXIS MT 178 P 80 QRSd 97 QRS 16 QT 379 T 131 QTc 480 Conclusion Sinus rhythm...normal P axis, V-rate 60- 99 Probable left atrial enlargement...P >50mS, <-0.10mV V1 Abnormal T, consider ischemia, lateral leads...T <-0.20mV, I aVL V5 V6 No STEMI
--- NOTE | 2025-09-08 17:15 | DI.RAD_ITS ---
Exam(s) XR PORTABLE CHEST AP EXAM: XR PORTABLE CHEST AP CLINICAL HISTORY: chest pain. TECHNIQUE: 2D digital imaging was performed. COMPARISON: CR,XR XR PORTABLE CHEST AP from 03/08/2025 FINDINGS: Single AP portable view. Cardiomegaly again noted. The mediastinum is not widened. There is a pulmonary venous hypertension pattern but no Chano B lines nor airspace pulmonary edema. No obvious pleural effusions IMPRESSION: Cardiomegaly. Pulmonary venous hypertension pattern. No airspace pulmonary edema. DATA REPOSITORY: RADIATION DOSE DELIVERED:
[2025-09-08 17:41] LABS: Abs Immature Grans 0.04 10^3/uL (0.0-0.06); BE (Venous) 3 mmol/L (-2-3); HCO3 (Venous) 29 mmol/L (23-28); HCT 45.4 % (40.0-50.0); HGB 14.8 g/dL (13.5-17.5); Immature Grans % 0.5 %; MCH 30.7 pg (27.0-33.0); MCHC 32.6 % (32.0-36.0); MCV 94 fL (80-95); MPV 9.5 fL (8.0-11.0); O2 Sat (Venous) 64 %; Platelet Count 252 10^3/uL (130-400); RBC 4.82 10^6/uL (4.36-5.78); RDW 13.6 % (11.8-14.1); RDW-SD 47.2 fL; TCO2 (Venous) 25 mmol/L (24-29); WBC 7.97 10^3/uL (4.4-10.8); pCO2 (Venous) 50 mmHg (41-51); pO2 (Venous) 32 mmHg
[2025-09-08 17:58] LABS: Magnesium 2.1 mg/dL (1.6-2.6)
[2025-09-08 18:00] LABS: ALT 19 U/L (10-49); AST 20 U/L (<34); Albumin 4.0 g/dL (3.4-5.0); Alkaline Phosphatase 101 U/L (46-116); Anion Gap 3.9 mmol/L (3-11); BUN 12 mg/dL (9-23); Bilirubin, Total 0.40 mg/dL (0.2-1.2); CO2 29.1 mmol/L (20.0-31.0); Calcium 8.1 mg/dL (8.3-10.6); Chloride 109 mmol/L (98-107); Glucose 73 mg/dL (74-106); Potassium 4.0 mmol/L (3.5-5.1); Sodium 142 mmol/L (136-145); Total Protein 6.5 g/dL (5.7-8.2)
[2025-09-08 18:25] LABS: Troponin I 132 ng/L (<54)
[2025-09-08 19:17] LABS: Troponin I 148 ng/L (<54)
[2025-09-08] MEDS: Albuterol/Ipratropium 3 ML UPD VIAL UPD (19:25)
[2025-09-08 20:21] LABS: PTT Activated 24.5 sec (20.6-30.2)
[2025-09-08] MEDS: Metoprolol 50 MG TAB PO (20:21)
[2025-09-08] MEDS: Heparin 5,000 UNITS/ML VIAL 8000 UNITS IV (20:21)
[2025-09-08] MEDS: Heparin in 0.45% NaCl 25,000 UNIT/250 ML BAG 16 UNIT IVINF (20:30)
--- NOTE | 2025-09-08 20:36 | W.ED.GENAD ---
Discharge Plan Disposition Patient Disposition: Transfer-Acute Inpatient Care Specific Acute Inpt Facility: [facility] Discharge Details Clinical Impression: Acute non-ST elevation myocardial infarction (NSTEMI) Primary Care Provider: Unknown,Unknown ED Provider: Adam Spencer Home Meds and New Rx's Prescriptions: No Action No Known Home Meds HPI General Date/Time Provider Initiated Documentation: 09/08/25 17:25. HPI Narrative: MDM/Narrative: 44-year-old male presents for chest pain relieved by nitroglycerin and concerning EKG findings for DE. Vital signs notable for significant hypertension. Similar presentation in prior evaluation this past spring when patient was recommended to undergo cardiac catheterization but refused for social circumstances. Will obtain screening labs including trending troponins, chest x-ray CMP, CBC and attempt to manage patient's blood pressure with p.o. meds. At this time patient is amenable to undergo transfer for further cardiology evaluation. ED course: Lab workup is mostly reassuring other than elevated troponin of 132 with a repeat 1 hour troponin of 146. In the setting of ST depressions on EKG, and reported history consistent with unstable angina. High concern for LUCIO. Will start patient on heparin bolus and drip, and discussed with [facility] cardiology as patient would prefer not to go to [facility] due to family preference. [address] Brannon of [facility] cardiology who accepts the patient as transfer for further evaluation likely including cardiac catheterization. At this time no beds are available, and [facility] will reach back out once there is an available bed for the patient. They are in agreement with starting patient on heparin, and would recommend carvedilol for further blood pressure management. Disposition: Admit to [facility] pending bed placement at [facility], likely dispo tomorrow. HPI: 44-year-old male past medical history of 1.5 pack/day smoking history, untreated hypertension, coronary artery disease, presents for evaluation of 1 week of intermittent chest pain described as tightness and pressure, culminating in an episode occurring approximately 1.5 hours prior to arrival with the patient awoke from sleep with crushing chest pain rated a 10, relieved by nitroglycerin when EMS arrived. At this time patient is chest pain-free. ROS: Negative besides as mentioned above Exam: Gen: A&O NAD HEENT: NCAT, EOMI, not icteric. External ears normal. No rhinorrhea. Moist mucous membranes. Neck: Supple, full range of motion, no observable masses, No meningeal sign. Lungs: No Respiratory distress. CV: RRR, no edema. Abdomen: Soft, nondistended, No rebound tenderness. MSK: No joint swelling, no redness. Skin: No rashes, petechiae, lesions. Normal color per patient. Neuro: Normal Gait, Grossly intact. Psych: Appropriate for situation. Rhythm: NSR Rate: 96 [place]: Normal axis Intervals: Normal intervals Other findings: ST depressions and T wave inversions in the lateral leads Labs: Laboratory Tests Range/Units 09/08/25 09/08/25 09/08/25 17:35 18:20 20:00 WBC (4.4-10.8) 10^3/uL 7.97 RBC (4.36-5.78) 10^6/uL 4.82 Hgb (13.5-17.5) g/dL 14.8 Hct (40.0-50.0) % 45.4 MCV (80-95) fL 94 MCH (27.0-33.0) pg 30.7 MCHC (32.0-36.0) % 32.6 RDW (11.8-14.1) % 13.6 Plt Count (130-400) 10^3/uL 252 MPV (8.0-11.0) fL 9.5 Immature Gran % % 0.5 Neutrophils % % 66.2 Lymphocytes % % 20.5 Monocytes % % 9.4 Eosinophils % % 2.4 Basophils % % 1.0 Nucleated RBC % (0.0-0.3) % 0.0 Absolute Neutrophils (1.2-6.7) 10^3/uL 5.28 Absolute Lymphocytes (1.2-3.4) 10^3/uL 1.63 Absolute Monocytes (0.1-0.8) 10^3/uL 0.75 Absolute Eosinophils (0.0-0.7) 10^3/uL 0.19 Absolute Basophils (0.0-0.2) 10^3/uL 0.08 APTT (20.6-30.2) sec 24.5 VBG pH (7.31-7.41) 7.37 VBG pCO2 (41-51) mmHg 50 VBG pO2 mmHg 32 VBG HCO3 (23-28) mmol/L 29 H VBG Total CO2 (24-29) mmol/L 25 VBG O2 Saturation % 64 VBG Base Excess (-2-3) mmol/L 3 VBG Lactate (<or=2.0) mmol/L 0.9 Sodium (136-145) mmol/L 142 Potassium (3.5-5.1) mmol/L 4.0 Chloride (98-107) mmol/L 109 H Carbon Dioxide (20.0-31.0) mmol/L 29.1 Anion Gap (3-11) mmol/L 3.9 BUN (9-23) mg/dL 12 Creatinine (0.73-1.18) mg/dL 1.2 H Est GFR (CKD-EPI 2020) (mL/min/1.73m2) 64.95 Glucose (74-106) mg/dL 73 L Calcium (8.3-10.6) mg/dL 8.1 L Magnesium (1.6-2.6) mg/dL 2.1 Total Bilirubin (0.2-1.2) mg/dL 0.40 AST (<34) U/L 20 ALT (10-49) U/L 19 Alkaline Phosphatase (46-116) U/L 101 Troponin I (<54) ng/L 132 H* 148 H* NT-Pro-B Natriuret Pep (<300) pg/mL 1851 H Total Protein (5.7-8.2) g/dL 6.5 Albumin (3.4-5.0) g/dL 4.0 Radiology: Exam(s) XR PORTABLE CHEST AP EXAM: XR PORTABLE CHEST AP CLINICAL HISTORY: chest pain. TECHNIQUE: 2D digital imaging was performed. COMPARISON: CR,XR XR PORTABLE CHEST AP from 03/08/2025 FINDINGS: Single AP portable view. Cardiomegaly again noted. The mediastinum is not widened. There is a pulmonary venous hypertension pattern but no Chano B lines nor airspace pulmonary edema. No obvious pleural effusions IMPRESSION: Cardiomegaly. Pulmonary venous hypertension pattern. No airspace pulmonary edema. Related Data Home Medications ?Medication ?Instructions ?Recorded ?Confirmed Unknown [No Known Home Meds] 03/08/25 09/08/25 Allergies Allergy/AdvReac Type Severity Reaction Status Date / Time No Known Allergies Allergy Verified 09/08/25 18:31 General Stated Complaint: Chest Pain NAE: 2 Course Vital Signs Vital signs: Vital Signs Temperature 36.3 C L 09/08/25 17:21 Pulse 99 H 09/08/25 17:21 Respiratory Rate 26 H 09/08/25 17:21 Blood Pressure 178/112 H 09/08/25 17:21 Pulse Oximetry 95 09/08/25 17:21 Temperature 36.3 C L 09/08/25 17:21 Temperature Source Oral 09/08/25 17:21 Pulse 92 H 09/08/25 20:31 Pulse 88 09/08/25 20:31 Respiratory Rate 20 09/08/25 20:31 Respiratory Effort Short of Breath 09/08/25 18:27 Respiratory Depth Normal 09/08/25 18:27 Respiratory Pattern Normal 09/08/25 18:27 Blood Pressure 191/111 H 09/08/25 20:31 Blood Pressure Mean 135 09/08/25 20:31 Blood Pressure Position Supine 09/08/25 17:21 Pulse Oximetry 98 09/08/25 20:31 Oxygen Delivery Method Room Air 09/08/25 17:21 Oxygen Flow Rate 0 09/08/25 17:21 Pain Level 0 09/08/25 17:21 Lab/Test Results Lab/Test Results: Laboratory Tests Range/Units 09/08/25 09/08/25 09/08/25 17:35 18:20 20:00 WBC (4.4-10.8) 10^3/uL 7.97 RBC (4.36-5.78) 10^6/uL 4.82 Hgb (13.5-17.5) g/dL 14.8 Hct (40.0-50.0) % 45.4 MCV (80-95) fL 94 MCH (27.0-33.0) pg 30.7 MCHC (32.0-36.0) % 32.6 RDW (11.8-14.1) % 13.6 Plt Count (130-400) 10^3/uL 252 MPV (8.0-11.0) fL 9.5 Immature Gran % % 0.5 Neutrophils % % 66.2 Lymphocytes % % 20.5 Monocytes % % 9.4 Eosinophils % % 2.4 Basophils % % 1.0 Nucleated RBC % (0.0-0.3) % 0.0 Absolute Neutrophils (1.2-6.7) 10^3/uL 5.28 Absolute Lymphocytes (1.2-3.4) 10^3/uL 1.63 Absolute Monocytes (0.1-0.8) 10^3/uL 0.75 Absolute Eosinophils (0.0-0.7) 10^3/uL 0.19 Absolute Basophils (0.0-0.2) 10^3/uL 0.08 APTT (20.6-30.2) sec 24.5 VBG pH (7.31-7.41) 7.37 VBG pCO2 (41-51) mmHg 50 VBG pO2 mmHg 32 VBG HCO3 (23-28) mmol/L 29 H VBG Total CO2 (24-29) mmol/L 25 VBG O2 Saturation % 64 VBG Base Excess (-2-3) mmol/L 3 VBG Lactate (<or=2.0) mmol/L 0.9 Sodium (136-145) mmol/L 142 Potassium (3.5-5.1) mmol/L 4.0 Chloride (98-107) mmol/L 109 H Carbon Dioxide (20.0-31.0) mmol/L 29.1 Anion Gap (3-11) mmol/L 3.9 BUN (9-23) mg/dL 12 Creatinine (0.73-1.18) mg/dL 1.2 H Est GFR (CKD-EPI 2020) (mL/min/1.73m2) 64.95 Glucose (74-106) mg/dL 73 L Calcium (8.3-10.6) mg/dL 8.1 L Magnesium (1.6-2.6) mg/dL 2.1 Total Bilirubin (0.2-1.2) mg/dL 0.40 AST (<34) U/L 20 ALT (10-49) U/L 19 Alkaline Phosphatase (46-116) U/L 101 Troponin I (<54) ng/L 132 H* 148 H* NT-Pro-B Natriuret Pep (<300) pg/mL 1851 H Total Protein (5.7-8.2) g/dL 6.5 Albumin (3.4-5.0) g/dL 4.0 Medical Decision Making Quality:SDOH Health Related Social Needs: Health related social needs inadequate housing lonely/isolated Health related social needs details na PFSH All Active Problems (Updated 09/08/25 @ 20:37 by Adam Spencer MD) Acute non-ST elevation myocardial infarction (NSTEMI) (Acute) COPD (chronic obstructive pulmonary disease) (Chronic) Tobacco abuse (Acute) (HFpEF) heart failure with preserved ejection fraction (Acute) Myocardial injury (Acute) Social History Smoking/Tobacco Use Status: Current every day Tobacco Type: cigarettes Smoking risk assessment performed?: Yes Alcohol Intake: never Drug use: Never Substance use type: does not use Housing: apartment Do you feel safe at home: Yes Do you feel safe in your relationship?: Yes
[2025-09-08] MEDS: Acetaminophen 500 MG TAB 1000 MG PO (22:18)
--- NOTE | 2025-09-08 22:19 | W.PCEDHO ---
Registration Status: REG ER Primary Language: Preferred Language: ED Information & Data Chief Complaint Chest Pain 09/08/25 20:37 Other Complaint SOB 09/08/25 17:21 Triage Note Pt states he has been waking 09/08/25 17:21 up with tightness in chest and SOB. Been going on for 1 week Most Recent Vital Signs Temperature 36.3 C L 09/08/25 17:21 Temperature Source Oral 09/08/25 17:21 Pulse 92 H 09/08/25 20:31 Pulse 88 09/08/25 20:31 Respiratory Rate 20 09/08/25 20:31 Respiratory Effort Short of Breath 09/08/25 18:27 Respiratory Depth Normal 09/08/25 18:27 Respiratory Pattern Normal 09/08/25 18:27 Blood Pressure 191/111 H 09/08/25 20:31 Blood Pressure Mean 135 09/08/25 20:31 Blood Pressure Position Supine 09/08/25 17:21 Pulse Oximetry 98 09/08/25 20:31 Oxygen Delivery Method Room Air 09/08/25 17:21 Oxygen Flow Rate 0 09/08/25 17:21 Pain Level 0 09/08/25 17:21 Allergies No Known Allergies Allergy (Verified 09/08/25 18:31) Precautions Isolation Standard precaution 09/08/25 18:27 Active Medications Generic Name Dose Route Start Last Admin Trade Name Khloe PRN Reason Stop Dose Admin Heparin Sodium/Sodium Chloride 25,000 unit in 250 mls @ 0 mls/hr 09/08/25 19:45 09/08/25 20:30 IVINF 16 mls/hr INFUSION OKSANA 16 mls/hr Protocol Administration Per Protocol IV IV Catheter Type [Left Peripheral IV Antecubital] IV Catheter Gauge [Left 18 Antecubital] Diet Orders Category Date Time Status Heart Healthy Eating [DIET] Nutrition 09/09/25 Breakfast Ordered Diagnostics 09/08/25 09/08/25 09/08/25 Range/Units 20:00 18:20 17:35 WBC 7.97 (4.4-10.8) 10^3/uL RBC 4.82 (4.36-5.78) 10^6/uL Hgb 14.8 (13.5-17.5) g/dL Hct 45.4 (40.0-50.0) % MCV 94 (80-95) fL MCH 30.7 (27.0-33.0) pg MCHC 32.6 (32.0-36.0) % RDW 13.6 (11.8-14.1) % Plt Count 252 (130-400) 10^3/uL MPV 9.5 (8.0-11.0) fL Immature Gran % 0.5 % Neutrophils % 66.2 % Lymphocytes % 20.5 % Monocytes % 9.4 % Eosinophils % 2.4 % Basophils % 1.0 % Nucleated RBC % 0.0 (0.0-0.3) % Absolute Neutrophils 5.28 (1.2-6.7) 10^3/uL Absolute Lymphocytes 1.63 (1.2-3.4) 10^3/uL Absolute Monocytes 0.75 (0.1-0.8) 10^3/uL Absolute Eosinophils 0.19 (0.0-0.7) 10^3/uL Absolute Basophils 0.08 (0.0-0.2) 10^3/uL APTT 24.5 (20.6-30.2) sec VBG pH 7.37 (7.31-7.41) VBG pCO2 50 (41-51) mmHg VBG pO2 32 mmHg VBG HCO3 29 H (23-28) mmol/L VBG Total CO2 25 (24-29) mmol/L VBG O2 Saturation 64 % VBG Base Excess 3 (-2-3) mmol/L VBG Lactate 0.9 (<or=2.0) mmol/L Sodium 142 (136-145) mmol/L Potassium 4.0 (3.5-5.1) mmol/L Chloride 109 H (98-107) mmol/L Carbon Dioxide 29.1 (20.0-31.0) mmol/L Anion Gap 3.9 (3-11) mmol/L BUN 12 (9-23) mg/dL Creatinine 1.2 H (0.73-1.18) mg/dL Est GFR (CKD-EPI 2020) 64.95 (mL/min/1.73m2) Glucose 73 L (74-106) mg/dL Calcium 8.1 L (8.3-10.6) mg/dL Magnesium 2.1 (1.6-2.6) mg/dL Total Bilirubin 0.40 (0.2-1.2) mg/dL AST 20 (<34) U/L ALT 19 (10-49) U/L Alkaline Phosphatase 101 (46-116) U/L Troponin I 148 H* 132 H* (<54) ng/L NT-Pro-B Natriuret Pep 1851 H (<300) pg/mL Total Protein 6.5 (5.7-8.2) g/dL Albumin 4.0 (3.4-5.0) g/dL Intake and Output - 24 Hour Total 09/08/25 17:09 thru 09/08/25 17:37 Intake Total 10 Balance 10 Weight 133.81 kg Intake: IV 10 Falls Risk Assessment History of Falls No History 09/08/25 18:27 Contributing Factors No Factors 09/08/25 18:27 Ambulatory Aids Independent 09/08/25 18:27 Tubes/Lines W/no contributing factors 09/08/25 18:27 Gait Evaluation No gait disturbance 09/08/25 18:27 Cognition No cognitive impairment 09/08/25 18:27 Fall Total Score 10 09/08/25 18:27 Level of Risk Standard/Low Risk 09/08/25 18:27 Attestation Statement: By documenting the first initial, last name, and credentials of the reporting nurse below, both parties acknowledge that all relevant information regarding the patient handoff has been communicated, and that all questions have been addressed to ensure continuity and safety of care. Additional Patient Information/Comments: CP x1, accepted by [facility], awaiting bed. Trops 148. 18 LAC, A&Ox3, ind in room. Metoprolol, Tylenol and upd given in ED. Report Received From: Harjeet Jones, BETTY
--- NOTE | 2025-09-08 23:55 | W.PM.HP.N ---
Date of service: 09/08/25 Time of Service: 23:55 Assessment and Plan Assessment and plan (1) Myocardial injury: Status: Acute Assessment and plan: Patient is on a heparin drip awaiting transfer to [facility] for definitive evaluation and treatment. (2) Tobacco abuse: Status: Acute Assessment and plan: Recommend completing total cessation of tobacco use (3) COPD (chronic obstructive pulmonary disease): Status: Chronic Assessment and plan: Stable Patient is on a heparin drip. History of Present Illness History of Present Illness Chief Complaint: chest pain Narrative: Mr Palma is a 44-year-old gentleman who I saw in February of this year for signs and symptoms consistent with ACS/coronary artery disease. At that time the patient was accepted into transfer to [facility] for cardiac evaluation. Unfortunately he left AMA. Patient states over the last few days she has had worsening dyspnea as well as chest tightness. Pain does not radiate to his arm or jaw although is not associated with nausea or diaphoresis. While he was in the ED he was noted to have elevated troponins and a call to [facility] was placed and the patient was accepted but due to bed availability he will be boarded here for the night. Upon my discussion with the patient, he states he smokes approximately 1-1/2 pack of cigarettes a day. Patient does not take any home medications. Patient's never had a cardiac workup. His EKG does show mild tachycardia with T wave inversion in the lateral leads. Patient was full code Review of Systems All systems reviewed & are unremarkable except as noted in HPI and below PFSH All Active Problems (Updated 09/08/25 @ 20:37 by Adam Spencer MD) Acute non-ST elevation myocardial infarction (NSTEMI) (Acute) COPD (chronic obstructive pulmonary disease) (Chronic) Tobacco abuse (Acute) (HFpEF) heart failure with preserved ejection fraction (Acute) Myocardial injury (Acute) Social History Smoking/Tobacco Use Status: Current every day Tobacco Type: cigarettes Smoking risk assessment performed?: Yes Alcohol Intake: never Drug use: Never Substance use type: does not use Housing: apartment Do you feel safe at home: Yes Do you feel safe in your relationship?: Yes Meds Allergies and Home Medications Allergies Allergy/AdvReac Type Severity Reaction Status Date / Time No Known Allergies Allergy Verified 09/08/25 18:31 Home Medications ?Medication ?Instructions ?Recorded ?Confirmed ?Type Unknown [No Known Home Meds] 03/08/25 09/08/25 History Exam Narrative Exam Narrative: HEENT normocephalic atraumatic mucous membranes moist Neck no lymphadenopathy no JVD Cardiovascular mild tachycardia no murmur rubs gallops Lungs clear to auscultation with good air exchange Abdomen protuberant Neurologic nonfocal Psych alert and oriented Constitutional 44-year-old gentleman appears older than stated age with a BMI of 44 Results Labs 09/08/25 17:35 09/08/25 17:35 Labs: Laboratory Results - last 24 hr 09/08/25 09/08/25 09/08/25 17:35 18:20 20:00 WBC 7.97 RBC 4.82 Hgb 14.8 Hct 45.4 MCV 94 MCH 30.7 MCHC 32.6 RDW 13.6 Plt Count 252 MPV 9.5 Immature Gran % 0.5 Neutrophils % 66.2 Lymphocytes % 20.5 Monocytes % 9.4 Eosinophils % 2.4 Basophils % 1.0 Nucleated RBC % 0.0 Absolute Neutrophils 5.28 Absolute Lymphocytes 1.63 Absolute Monocytes 0.75 Absolute Eosinophils 0.19 Absolute Basophils 0.08 APTT 24.5 VBG pH 7.37 VBG pCO2 50 VBG pO2 32 VBG HCO3 29 H VBG Total CO2 25 VBG O2 Saturation 64 VBG Base Excess 3 VBG Lactate 0.9 Sodium 142 Potassium 4.0 Chloride 109 H Carbon Dioxide 29.1 Anion Gap 3.9 BUN 12 Creatinine 1.2 H Est GFR (CKD-EPI 2020) 64.95 Glucose 73 L Calcium 8.1 L Magnesium 2.1 Total Bilirubin 0.40 AST 20 ALT 19 Alkaline Phosphatase 101 Troponin I 132 H* 148 H* NT-Pro-B Natriuret Pep 1851 H Total Protein 6.5 Albumin 4.0 Last Vital Signs Temp 36.3 C L 09/08/25 22:54 Pulse 77 09/08/25 22:54 Resp 18 09/08/25 22:54 BP 158/97 H 09/08/25 22:54 Pulse Ox 95 09/08/25 22:54 Time Spent Time spent with Patient: 55-74 minutes Time was spent: preparing to see the patient(eg.review tests), obtaining and/or reviewing separately otained hiistory, ordering medications,tests, procedures, referring, communicating with other health rn progressive care unit, indepentently interpreting results, counseling the patient and care coordination
[2025-09-09 04:53] LABS: Abs Immature Grans 0.05 10^3/uL (0.0-0.06); HCT 45.1 % (40.0-50.0); HGB 14.7 g/dL (13.5-17.5); Immature Grans % 0.6 %; MCH 30.7 pg (27.0-33.0); MCHC 32.6 % (32.0-36.0); MCV 94 fL (80-95); MPV 9.6 fL (8.0-11.0); Platelet Count 243 10^3/uL (130-400); RBC 4.79 10^6/uL (4.36-5.78); RDW 13.7 % (11.8-14.1); RDW-SD 46.8 fL; WBC 9.00 10^3/uL (4.4-10.8)
[2025-09-09 05:05] LABS: INR 1.0 (0.9-1.1); Prothrombin Time 10.3 sec (9.1-11.1)
[2025-09-09 05:12] LABS: ALT 21 U/L (10-49); AST 22 U/L (<34); Albumin 3.9 g/dL (3.4-5.0); Alkaline Phosphatase 97 U/L (46-116); Anion Gap 5.7 mmol/L (3-11); BUN 14 mg/dL (9-23); Bilirubin, Total 0.40 mg/dL (0.2-1.2); CO2 26.3 mmol/L (20.0-31.0); Calcium 8.3 mg/dL (8.3-10.6); Chloride 109 mmol/L (98-107); Glucose 85 mg/dL (74-106); Potassium 3.8 mmol/L (3.5-5.1); Sodium 141 mmol/L (136-145); Total Protein 6.5 g/dL (5.7-8.2)
[2025-09-09 05:15] LABS: PTT Activated 42.4 sec (20.6-30.2)
[2025-09-09 05:33] VITALS: BP 168/110; PULSE 81; RESP 16; TEMP 36.4; O2SAT 96
[2025-09-09 05:35] LABS: Troponin I 127 ng/L (<54)
[2025-09-09] MEDS: MORPHine 2 MG/ML SYR IVP (06:00)
[2025-09-09] MEDS: Carvedilol 25 MG TAB PO ×2 (07:44→20:22)
--- NOTE | 2025-09-09 09:02 | PDOC.CMIN ---
Date of service: 09/09/25 Time of Service: 09:02 Care Management Initial Assmt Initial Assessment Reason for Hospitalization: NSTEMI Functional Status/Living Situation Patient Presentation: Emiliano presented to the ED yesterday evening with c/o chest pain that was relieved by nitroglycerin. He was also noted to have significant hypertension. Emiliano had been admitted for the same in the spring, and was recommended that he undergo cardiac catheterization. At that time, Emiliano refused that procedure due to social circumstances. 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 Emiliano is again recommended to undergo further cardiac evaluation. He has been accepted at [facility], for likely catheterization. Emiliano is currently on a heparin drip, his BP is trying to be controlled on oral meds. As above, Emiliano is the primary, paid caregiver for his Mom, Lily, and he is worried about how she will be cared for while he is hospitalized. He does have a good family friend, Ann, who has helped in the past. A colleague has been assigned to Lily today, who is being housed in the ED while arrangements are made. 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) Instrumental Activities of Daily Living (ADLs): Independent Medications Medication Management: No Issues/Barriers identified Advance Directives Advance Directives: Do you have an Advance Directive: N 03/08/25, 05:36 AD On File at [facility]: N 03/08/25, 05:36 Date Asked 09/08/25 09/08/25, 17:31 AD Date Reviewed COLST On File at [facility] COLST Date Scanned Code Status Resuscitation Status Full Code Insurance Coverage/Financial Issues Insurance: Medicaid of [place] Care Team Visit Care Team Role Provider Type Yasemin Scales NP MD [facility] STAFF PHYSICIAN Unknown Unknown Primary Care Provider STAFF PHYSICIAN Adam Spencer MD Emergency Provider [facility] STAFF PHYSICIAN Jimbo Sanches MD Admit Provider [facility] STAFF PHYSICIAN Attending Provider Discharge Potential Discharge Needs: Other (transfer to [facility]. will require PCP and cardiology f/u) Anticipated Barriers to Discharge: Bed availability Patient/Family Education Needs: Review discharge instructions, discuss Ask Me Three Transportation: EMS Plan: Emiliano has been accepted to [facility] for cardiac workup and likely cardiac cath. He is currently awaiting a bed. Emiliano will need to f/u with his PCP and the truck driver helper and continue per his new plan of care. CM will continue to follow through transfer. Social Determinants of Health Screening Will the Patient Participate in the Screening?: Declined to provide PFSH All Active Problems (Updated 09/08/25 @ 20:37 by Adam Spencer MD) Acute non-ST elevation myocardial infarction (NSTEMI) (Acute) COPD (chronic obstructive pulmonary disease) (Chronic) Tobacco abuse (Acute) (HFpEF) heart failure with preserved ejection fraction (Acute) Myocardial injury (Acute) Social History Smoking/Tobacco Use Status: Current every day Tobacco Type: cigarettes Smoking risk assessment performed?: Yes Alcohol Intake: never Drug use: Never Substance use type: does not use Housing: apartment Do you feel safe at home: Yes Do you feel safe in your relationship?: Yes
[2025-09-09] MEDS: Heparin in 0.45% NaCl 25,000 UNIT/250 ML BAG 18.5 UNIT IVINF (09:42)
[2025-09-09 09:44] VITALS: BP 141/93; PULSE 76; RESP 20; TEMP 36.1; O2SAT 96
[2025-09-09] MEDS: amLODIPine 5 MG TAB PO (10:10)
[2025-09-09] MEDS: nitroGLYcerin 2% 1 INCH/1 GM PKT TP ×3 (10:10→21:54)
[2025-09-09 11:08] VITALS: BP 148/97; PULSE 72; RESP 20; TEMP 36; O2SAT 95
[2025-09-09 12:58] LABS: PTT Activated 50.8 sec (20.6-30.2)
--- NOTE | 2025-09-09 13:30 | RT.EKG_ITS ---
APPROVED REPORT Exam: Resting ECG Reason for Exam: f/u NSTEMI Patient Location: I HR:80 bpm ECG Measurements Heart Rate 80 AXIS UT 171 P 64 QRSd 97 QRS -1 QT 377 T 166 QTc 435 Conclusion Sinus rhythm...normal P axis, V-rate 50- 99 Ventricular trigeminy...trigeminy string>6 w/ V complexes Probable left atrial enlargement...P >50mS, <-0.10mV V1 Abnormal T, consider ischemia, lateral leads...T <-0.20mV, I aVL V5 V6 Baseline wander in lead(s) V2
--- NOTE | 2025-09-09 13:31 | PGE_ITS ---
Date of Service Date of service: 09/09/25 Time of Service: 13:32 Assessment and Plan Assessment and plan (1) Acute non-ST elevation myocardial infarction (NSTEMI): Status: Acute Assessment and plan: Patient is on a heparin drip awaiting transfer to [facility] for definitive evaluation and treatment. Troponins trending down. Mild residual discomfort this morning and high BP, given NTG paste Trend EKG Concern for new CHF on CXR, get echo as unlikely to get bed today, also assess for focal wall abnormalities (2) Tobacco abuse: Status: Acute Assessment and plan: Recommend completing total cessation of tobacco use, NRT prn for now (3) COPD (chronic obstructive pulmonary disease): Status: Chronic Assessment and plan: Not exacerbated. Monitor.. (4) Hypertension: Status: Chronic Assessment and plan: Per history untreated severe HTN On carvedilol, continue. 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 Severe chest heaviness has resolved and not recurred. He still has a more subtle feeling of tightness in right lower chest with breathing. He states his blood pressure always runs high, up to 200s systolic, but he doesn't have a PCP. He smokes but doesn't drink or use other substances including stimulants. Exam Narrative Exam Narrative: Gen: Alert and oriented, NAD Cardiovascular: RRR, no M/G/R Lungs clear to auscultation with good air exchange Abdomen: soft, NT/ND Neurologic nonfocal Objective Last Vital Signs Temp 36.0 C L 09/09/25 11:08 Pulse 72 09/09/25 11:08 Resp 20 09/09/25 11:08 BP 148/97 H 09/09/25 11:08 Pulse Ox 95 09/09/25 11:08 Laboratory Results - last 24 hr 09/08/25 09/08/25 09/08/25 17:35 18:20 20:00 WBC 7.97 RBC 4.82 Hgb 14.8 Hct 45.4 MCV 94 MCH 30.7 MCHC 32.6 RDW 13.6 Plt Count 252 MPV 9.5 Immature Gran % 0.5 Neutrophils % 66.2 Lymphocytes % 20.5 Monocytes % 9.4 Eosinophils % 2.4 Basophils % 1.0 Nucleated RBC % 0.0 Absolute Neutrophils 5.28 Absolute Lymphocytes 1.63 Absolute Monocytes 0.75 Absolute Eosinophils 0.19 Absolute Basophils 0.08 PT INR APTT 24.5 VBG pH 7.37 VBG pCO2 50 VBG pO2 32 VBG HCO3 29 H VBG Total CO2 25 VBG O2 Saturation 64 VBG Base Excess 3 VBG Lactate 0.9 Sodium 142 Potassium 4.0 Chloride 109 H Carbon Dioxide 29.1 Anion Gap 3.9 BUN 12 Creatinine 1.2 H Est GFR (CKD-EPI 2020) 64.95 Glucose 73 L Calcium 8.1 L Magnesium 2.1 Total Bilirubin 0.40 AST 20 ALT 19 Alkaline Phosphatase 101 Troponin I 132 H* 148 H* NT-Pro-B Natriuret Pep 1851 H Total Protein 6.5 Albumin 4.0 09/09/25 09/09/25 04:46 12:15 WBC 9.00 RBC 4.79 Hgb 14.7 Hct 45.1 MCV 94 MCH 30.7 MCHC 32.6 RDW 13.7 Plt Count 243 MPV 9.6 Immature Gran % 0.6 Neutrophils % 57.4 Lymphocytes % 28.9 Monocytes % 9.0 Eosinophils % 2.9 Basophils % 1.2 Nucleated RBC % 0.0 Absolute Neutrophils 5.17 Absolute Lymphocytes 2.60 Absolute Monocytes 0.81 H Absolute Eosinophils 0.26 Absolute Basophils 0.11 PT 10.3 INR 1.0 APTT 42.4 H 50.8 H VBG pH VBG pCO2 VBG pO2 VBG HCO3 VBG Total CO2 VBG O2 Saturation VBG Base Excess VBG Lactate Sodium 141 Potassium 3.8 Chloride 109 H Carbon Dioxide 26.3 Anion Gap 5.7 BUN 14 Creatinine 1.2 H Est GFR (CKD-EPI 2020) 66.87 Glucose 85 Calcium 8.3 Magnesium Total Bilirubin 0.40 AST 22 ALT 21 Alkaline Phosphatase 97 Troponin I 127 H* NT-Pro-B Natriuret Pep Total Protein 6.5 Albumin 3.9 Time Spent with Patient Time Spent with Patient: 35-49 minutes Time was spent: preparing to see the patient(eg.review tests), obtaining and/or reviewing separately otained hiistory, ordering medications,tests, procedures, referring, communicating with other health daycare manager, indepentently interpreting results, counseling the patient and care coordination
--- NOTE | 2025-09-09 15:25 | CHAPLAIN ---
Emiliano was sitting up in bed when I visited. He was waiting for family members to arrive. According to report at [facility], he awaiting transfer to [facility]. I eplained my role and offered support.
[2025-09-09 15:53] VITALS: BP 134/89; PULSE 73; RESP 18; TEMP 36.3; O2SAT 94
[2025-09-09] MEDS: Clopidogrel 300 MG TAB PO (18:40)
[2025-09-09] MEDS: Aspirin 325 MG TAB PO (18:40)
--- NOTE | 2025-09-09 18:49 | INITIAL_ITS ---
Date of service: 09/09/25 Time of Service: 18:49 Care Management Initial Assmt Initial Assessment Reason for Hospitalization: chest pain Functional Status/Living Situation Patient Presentation: Emiliano was sitting up in bed when CM met with him. He was pleasant and engaged in conversation. He discussed that he was admitted for a similar reason in February of this year, but he left AMA prior to transfer because he was worried about his mother, as he didn't have anyone to care for her. He stated that he and his mother are very close, and she doesn't like to leave home, and relys on him for a lot of her care. CM discussed the plan to have her go to a facility for respite, which he is agreeable to, as long as she is as well. Emiliano discussed his plan of care, which is to transfer to [facility] for further care. He acknowledged that he wants to improve his health, and that he knows that he will need to make some lifestyle changes, such as eating better, getting more exercise and quitting smoking. He stated that between him and his mother, they smoke 6 cartons of cigarettes a month. He stated that he has been meditating, and has not had cravings for cigarettes so far this admission. CM discussed supports for smoking cessation. CM reached out to [facility], as he has an appt with them in November, asking for this to be moved closer, due to his recent admission. DESTINY will continue to follow. 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[employer]) Instrumental Activities of Daily Living (ADLs): Independent Medications Medication Management: No Issues/Barriers identified Advance Directives Advance Directives: Do you have an Advance Directive: N , 05:36 AD On File at [facility]: N 03/08/25, 05:36 Date Asked 09/08/25 09/08/25, 17:31 AD Date Reviewed COLST On File at [facility] COLST Date Scanned Code Status Resuscitation Status Full Code Insurance Coverage/Financial Issues Insurance: [facility] Care Team Visit Care Team Role Provider Type Tobias Torres MD [facility] STAFF PHYSICIAN Unknown Unknown Primary Care Provider STAFF PHYSICIAN Adam Spencer MD Emergency Provider [facility] STAFF PHYSICIAN Jimbo Sanches MD Admit Provider [facility] STAFF PHYSICIAN Attending Provider Discharge Potential Discharge Needs: Other (transfer to tertiary facility) Anticipated Barriers to Discharge: Bed availability Patient/Family Education Needs: Review discharge instructions, discuss Ask Me Three Transportation: EMS Plan: Emiliano is accepted at [facility], pending bed availability. Per report, a bed will be available tomorrow morning. He will transport via EMS, coordinated by RN banquet kitchen supervisor. He will follow up with his PCP and discharge plan of care. CM will continue to follow. Social Determinants of Health Screening Will the Patient Participate in the Screening?: Declined to provide PFSH All Active Problems (Updated 09/09/25 @ 13:40 by Tobias Torres) Hypertension (Chronic) Acute non-ST elevation myocardial infarction (NSTEMI) (Acute) COPD (chronic obstructive pulmonary disease) (Chronic) Tobacco abuse (Acute) (HFpEF) heart failure with preserved ejection fraction (Acute) Myocardial injury (Acute) Social History Smoking/Tobacco Use Status: Current every day Tobacco Type: cigarettes Smoking risk assessment performed?: Yes Alcohol Intake: never Drug use: Never Substance use type: does not use Housing: apartment Do you feel safe at home: Yes Do you feel safe in your relationship?: Yes
[2025-09-09 19:54] LABS: PTT Activated 58.4 sec (20.6-30.2)
[2025-09-09] MEDS: Losartan 25 MG TAB PO (20:22)
[2025-09-09] MEDS: Atorvastatin 40 MG TAB 80 MG PO (20:22)
[2025-09-09] MEDS: Heparin in 0.45% NaCl 25,000 UNIT/250 ML BAG 21 UNIT IVINF (20:23)
[2025-09-09 22:06] VITALS: BP 136/93; PULSE 73; RESP 18; O2SAT 94
[2025-09-09 23:07] LABS: Hemoglobin A1C 5.5 % (<5.7)
[2025-09-09 23:26] LABS: Troponin I 171 ng/L (<54)
[2025-09-09 23:46] LABS: Cholesterol 138 mg/dL (<200); HDL Cholesterol 34 mg/dL (>40)
[2025-09-10 01:56] LABS: PTT Activated 59.0 sec (20.6-30.2)
[2025-09-10] MEDS: nitroGLYcerin 2% 1 INCH/1 GM PKT TP (05:16)
--- NOTE | 2025-09-10 06:06 | W.PM.DS.N ---
Date of service: 09/10/25 Time of Service: 06:06 DS: Diagnosis Discharge Diagnosis (1) Acute non-ST elevation myocardial infarction (NSTEMI): Status: Acute (2) Tobacco abuse: Status: Acute (3) COPD (chronic obstructive pulmonary disease): Status: Chronic (4) Hypertension: Status: Chronic Discharge Plan Disposition Patient Disposition: Transfer-Acute Inpatient Care Specific Acute In Facility: [facility] Condition: Stable Discharge Details Reason For Visit: Chest Pain Admit Date/Time: 09/08/25 21:44 Admit Provider: Jimbo Sanches Attending Provider: Jimbo Sanches Primary Care Provider: Unknown,Unknown Hospital Course Hospital Course: 44 yo with history of heavy smoking, COPD, and poorly controlled hypertension without a regular source of care who presented 09/08 with severe crushing chest pain that was relieved by nitroglcerin in the ED. He had some lateral T-wave inversions on his EKG and his troponins were 132 trending up to 148 then down to 127. He was started on a heparin drip. Case was reviewed with [facility] cardiology and he was accepted by Dr. Brannon pending a bed. He was also treated with aspirin, clopidogrel, and atorvastatin. Of note, he had a similar presentation and was admitted in March 08-2024 pending transfer to [facility] and he left [facility]. His troponin was as high as 303 and trended down to 100 at that visit. He had blood pressures in the 150s-200s/80s-130s. His carvedilol was continued. His blood pressures came down but were still in 170s systolic. He described similar blood pressures chronically. He still had slight residual chest discomfort was given an inch of NTG paste. EKG at that point continued to show the lateral t-wave inversions. To treat chronic hypertension, he got one dose of amlodipine, but given his cardiac disease he was changed to losartan 25mg po BID starting the evening of 09/09. Echocardiogram was ordered but was not done due to capacity before time of transfer. A1c and lipids were done to assess chronic risk. He has a new PCP appointment at [facility] in [facility] but not until November. He will need expedited follow up upon discharge. Home Meds and New Rx's Prescriptions: No Action No Known Home Meds Discharge Instructions Activity:: Activity as Tolerated Equipment/Supplies:: No Equipment Needed Diet:: Low Sodium DS: Summary Time Spent with Patient providing and/or coordinating discharge services: Less than 30 minutes Status at Discharge Functional status at discharge: independent ambulation Overall status at discharge: patient is progressing back to baseline Mental Status: mental status grossly normal Speech and Movement: speech and movement normal Mood: congruent mood Affect: normal affect Quality:SDOH Health Related Social Needs: Health related social needs inadequate housing lonely/isolated Health related social needs details na Exam Narrative Exam Narrative: heent ncat mmm neck no jvd cv-rrr no mrg ctab no amu sntndbsa Psych Mental Status: mental status grossly normal Speech and Movement: speech and movement normal Mood: congruent mood Affect: normal affect DS: Data Vitals/I&O Vitals and I&O: Vital Signs Temperature 36.3 C L 09/09/25 15:53 Temperature Source Tympanic 09/09/25 15:53 Pulse 73 09/09/25 22:06 Pulse Rhythm Regular 09/08/25 22:54 Pulse 71 09/08/25 22:16 Respiratory Rate 18 09/09/25 22:06 Respiratory Effort Normal, Non-Labored 09/08/25 22:54 Respiratory Depth Normal 09/08/25 22:54 Respiratory Pattern Normal 09/08/25 22:54 Blood Pressure 136/93 H 09/09/25 22:06 Blood Pressure Mean 107 09/09/25 22:06 Blood Pressure Position Supine 09/08/25 17:21 Pulse Oximetry 94 09/09/25 22:06 Oxygen Delivery Method Room Air 09/09/25 22:06 Oxygen Flow Rate 0 09/09/25 22:06 Pain Level 0 09/09/25 22:06 Intake & Output 09/09/25 09/09/25 09/10/25 11:59 23:59 11:59 Intake Total 830.000 / 1045.933 215.933 / 1045.933 122.15 / 122.15 Output Total 1300 / 1300 Balance -470.000 / -254.067 215.933 / -254.067 122.15 / 122.15 Weight 136.259 kg 136.3 kg Intake: IV 250.000 / 465.933 215.933 / 465.933 122.15 / 122.15 Oral 580 / 580 Output: Urine 1300 / 1300 Other: Urine Color Light Irma Urine Appearance Clear Urine Odor Normal Comment pt walked to the bathroom with stand by assist...voided in the toliet, unknown amount of urine in the toliet Data Completed and Pending Pending Labs at Discharge: 09/08/25 09/08/25 09/08/25 17:35 18:20 20:00 WBC 7.97 RBC 4.82 Hgb 14.8 Hct 45.4 MCV 94 MCH 30.7 MCHC 32.6 RDW 13.6 Plt Count 252 MPV 9.5 Immature Gran % 0.5 Neutrophils % 66.2 Lymphocytes % 20.5 Monocytes % 9.4 Eosinophils % 2.4 Basophils % 1.0 Nucleated RBC % 0.0 Absolute Neutrophils 5.28 Absolute Lymphocytes 1.63 Absolute Monocytes 0.75 Absolute Eosinophils 0.19 Absolute Basophils 0.08 PT INR APTT 24.5 VBG pH 7.37 VBG pCO2 50 VBG pO2 32 VBG HCO3 29 H VBG Total CO2 25 VBG O2 Saturation 64 VBG Base Excess 3 VBG Lactate 0.9 Sodium 142 Potassium 4.0 Chloride 109 H Carbon Dioxide 29.1 Anion Gap 3.9 BUN 12 Creatinine 1.2 H Est GFR (CKD-EPI 2020) 64.95 Glucose 73 L Hemoglobin A1c Calcium 8.1 L Magnesium 2.1 Total Bilirubin 0.40 AST 20 ALT 19 Alkaline Phosphatase 101 Troponin I 132 H* 148 H* NT-Pro-B Natriuret Pep 1851 H Total Protein 6.5 Albumin 4.0 Triglycerides Total Cholesterol LDL Cholesterol, Calc HDL Cholesterol 09/09/25 09/09/25 09/09/25 04:46 12:15 19:30 WBC 9.00 RBC 4.79 Hgb 14.7 Hct 45.1 MCV 94 MCH 30.7 MCHC 32.6 RDW 13.7 Plt Count 243 MPV 9.6 Immature Gran % 0.6 Neutrophils % 57.4 Lymphocytes % 28.9 Monocytes % 9.0 Eosinophils % 2.9 Basophils % 1.2 Nucleated RBC % 0.0 Absolute Neutrophils 5.17 Absolute Lymphocytes 2.60 Absolute Monocytes 0.81 H Absolute Eosinophils 0.26 Absolute Basophils 0.11 PT 10.3 INR 1.0 APTT 42.4 H 50.8 H 58.4 H VBG pH VBG pCO2 VBG pO2 VBG HCO3 VBG Total CO2 VBG O2 Saturation VBG Base Excess VBG Lactate Sodium 141 Potassium 3.8 Chloride 109 H Carbon Dioxide 26.3 Anion Gap 5.7 BUN 14 Creatinine 1.2 H Est GFR (CKD-EPI 2020) 66.87 Glucose 85 Hemoglobin A1c Calcium 8.3 Magnesium Total Bilirubin 0.40 AST 22 ALT 21 Alkaline Phosphatase 97 Troponin I 127 H* NT-Pro-B Natriuret Pep Total Protein 6.5 Albumin 3.9 Triglycerides Total Cholesterol LDL Cholesterol, Calc HDL Cholesterol 09/09/25 09/10/25 22:38 01:28 WBC RBC Hgb Hct MCV MCH MCHC RDW Plt Count MPV Immature Gran % Neutrophils % Lymphocytes % Monocytes % Eosinophils % Basophils % Nucleated RBC % Absolute Neutrophils Absolute Lymphocytes Absolute Monocytes Absolute Eosinophils Absolute Basophils PT INR APTT 59.0 H VBG pH VBG pCO2 VBG pO2 VBG HCO3 VBG Total CO2 VBG O2 Saturation VBG Base Excess VBG Lactate Sodium Potassium Chloride Carbon Dioxide Anion Gap BUN Creatinine Est GFR (CKD-EPI 2020) Glucose Hemoglobin A1c 5.5 Calcium Magnesium Total Bilirubin AST ALT Alkaline Phosphatase Troponin I 171 H* NT-Pro-B Natriuret Pep Total Protein Albumin Triglycerides 193 H Total Cholesterol 138 LDL Cholesterol, Calc 65.3 HDL Cholesterol 34 L PFSH All Active Problems (Updated 09/09/25 @ 13:40 by Tobias Torres) Hypertension (Chronic) Acute non-ST elevation myocardial infarction (NSTEMI) (Acute) COPD (chronic obstructive pulmonary disease) (Chronic) Tobacco abuse (Acute) (HFpEF) heart failure with preserved ejection fraction (Acute) Myocardial injury (Acute) Social History Smoking/Tobacco Use Status: Current every day Tobacco Type: cigarettes Smoking risk assessment performed?: Yes Alcohol Intake: never Drug use: Never Substance use type: does not use Housing: apartment Do you feel safe at home: Yes Do you feel safe in your relationship?: Yes Time Spent with Patient Time Spent with Patient: <45 minutes Time was spent: preparing to see the patient(eg.review tests), obtaining and/or reviewing separately otained hiistory, ordering medications,tests, procedures, referring, communicating with other health manager intensive care unit, indepentently interpreting results, counseling the patient and care coordination
[2025-09-10 06:18] VITALS: BP 153/90; PULSE 81; RESP 18; TEMP 36.4
[2025-09-10] MEDS: Heparin in 0.45% NaCl 25,000 UNIT/250 ML BAG 21 UNIT IVINF (07:15)
--- NOTE | 2025-09-10 17:11 | CMDISCH_ITS ---
Date of service: 09/10/25 Time of Service: 17:12 LACE Index Scoring Tool Questions: Length of Stay (in days): 1 Was the patient admitted via the E.D.?: Yes Comorbidities: Previous M.I., Congestive Heart Failure and Chronic Pulmonary Disease E.D. Visits: 1 Answers: Total Score: 10 Risk of Readmission: High Risk Care Management Discharge Plan Reason for Hospitalization: NSTEMI Discharge Plan: Emiliano was transferred to [facility] for further work up for his chest pain/NSTEMI. He transported via EMS, coordinated by RN produce department supervisor. He will follow up with his PCP and discharge plan of care. Patient/Family Education Needs: Review discharge instructions and limitations, discussion of self care needs including ask me three. Services Needed at Discharge: Transportation (EMS) SDOH Health Related Social Needs: Health related social needs inadequate housing lonely/ isolated Health related social needs details na
== END 2025-09-10 07:25 | disposition short-term general hospital (02) | DRG 281 ==
LOC: ER 21:13 → MS 22:51
PROVIDERS: Admitting Provider Hospitalist; Emergency Provider General Practice; PCP Nurse Practitioner Family; Responsible Provider Family Medicine; Visit Provider Hospitalist
DX: I21.4 Non-ST elevation (NSTEMI) myocardial infarction (principal); I50.30 Unspecified diastolic (congestive) heart failure; I11.0 Hypertensive heart disease with heart failure; F17.210 Nicotine dependence, cigarettes, uncomplicated; J44.9 Chronic obstructive pulmonary disease, unspecified
CPT/HCPCS: 00123; 36415; 80053; 80061; 82805; 93005; 94640; 96365; 96366; 99285; 71045; 83036; 83605; 83735; 83880; 84484; 85025; 85610; 85730; 93010; 99222; 99232; 99238; G0378; J1644; J2270; J7620

== ENCOUNTER 2025-09-19 02:22 | Outpatient (CLI) | payer MEDICAID, SELFPAY ==
[2025-09-19 14:03] LABS: Anion Gap 11.7 mmol/L (3-11); BUN 26 mg/dL (9-23); CO2 26.3 mmol/L (20.0-31.0); Calcium 9.0 mg/dL (8.3-10.6); Chloride 100 mmol/L (98-107); Glucose 175 mg/dL (74-106); Potassium 3.2 mmol/L (3.5-5.1); Sodium 138 mmol/L (136-145)
== END 2025-09-19 02:23 | disposition home or self-care (01) ==
LOC: LBO 02:22
PROVIDERS: PCP Nurse Practitioner Family; Referring Provider Nurse Practitioner Family; Visit Provider Nurse Practitioner Family
DX: I10 Essential (primary) hypertension (principal)
CPT/HCPCS: 36415; 80048

== ENCOUNTER 2025-09-24 01:51 | Outpatient (CLI) | payer MEDICAID, SELFPAY ==
[2025-09-24] MEDS: Inhaler, Assist Device 1 EACH MC (17:13)
[2025-09-24] MEDS: Levalbuterol HFA 15 GM INH 4 PUFF IH (17:13)
--- NOTE | 2025-09-25 11:16 | W.PFT ---
Date of service: 09/24/25 Time of Service: 15:05 Pulmonary Function Test Result Indications: COPD Impression 1. Good patient effort was noted. ATS standards for reproducibility were met. 2. Spirometry was not consistent with obstructive lung disease. FVC was reduced at 70% 3. Following the administration of a bronchodilator there was not a significant response 4. TLC is reduced at 75% predicted, consistent with mild restrictive lung disease 5. DLCO was normal at 83%
== END 2025-09-24 01:52 | disposition home or self-care (01) ==
LOC: RT 01:51
PROVIDERS: PCP Nurse Practitioner Family; Visit Provider Nurse Practitioner Family
DX: J44.9 Chronic obstructive pulmonary disease, unspecified (principal)
CPT/HCPCS: 94060; 94726; 94729